=== PATIENT | male | born 1970 | race Caucasian/White ===

== ENCOUNTER 2020-02-05 08:50 | Day surgery (SDC) | payer BC, SELFPAY ==
[2020-01-30 09:45] VITALS: BMI 30.7
--- NOTE | 2020-02-03 13:36 | HO.ANESPROP2 ---
Documented by User: Blanca Gutierrez 02/03/20 13:38 HPI - Anesthesia Eval Consult details Narrative: 49yo M for Upper Endoscopy [facility] Past Medical History Medical History Anxiety Cervical radiculopathy Diabetes GERD (gastroesophageal reflux disease) History of rosacea History of tachycardia Hyperlipidemia LDL goal <100 Hypertension SOLEDAD (obstructive sleep apnea) Surgical History Surgical History History of appendectomy History of cervical discectomy Hx of cholecystectomy Hx of left knee surgery Social History Social History Smoking Status: Former smoker Smoking Quit Date: age 40 Advance Directives: No Advance Directives Information Provided: No Advance Directives on File: No Meds Allergies Allergy/AdvReac Type Severity Reaction Status Date / Time No Known Allergies Allergy Unverified 01/30/20 09:21 [No Known Allergies*] Home Medications Medication Instructions Recorded Confirmed Type dapagliflozin [Farxiga] 1 tab PO DAILY 01/30/20 01/30/20 History fluoxetine 1 cap PO DAILY 01/30/20 01/30/20 History furosemide 1 tab PO DAILY 01/30/20 01/30/20 History gabapentin 1 cap PO TID 01/30/20 01/30/20 History glipizide 1 tab PO BID 01/30/20 01/30/20 History ibuprofen 1 tab PO TID 01/30/20 01/30/20 History lisinopril 1 tab PO DAILY 01/30/20 01/30/20 History metformin 1 tab PO BID 01/30/20 01/30/20 History mirtazapine 1 tab PO BEDTIME 01/30/20 01/30/20 History sucralfate tab PO 01/30/20 01/30/20 History metoprolol succinate 1 tab PO DAILY 02/05/20 02/05/20 History Exam Exam Date and Time: February 03, 2020 1336 Height,Weight and Vital Signs: Height 6 ft 3 in Weight 111.584 kg Pertinent Lab Results Pertinent Lab Results: Laboratory Tests 12/24/19 10:25 Sodium 140 Potassium 5.1 D Chloride 96 BUN 18 H Creatinine 1.35 Assessment and Plan Assessment Anesthesia Assessment: Chart Reviewed Documented by User: Steve Jackson MD 02/05/20 09:38 PMFSH Past Medical History Medical History Anxiety Cervical radiculopathy Diabetes GERD (gastroesophageal reflux disease) History of rosacea History of tachycardia Hyperlipidemia LDL goal <100 Hypertension SOLEDAD (obstructive sleep apnea) Surgical History Surgical History History of appendectomy History of cervical discectomy Hx of cholecystectomy Hx of left knee surgery Social History Social History Smoking Status: Former smoker Smoking Quit Date: age 40 Advance Directives: No Advance Directives Information Provided: No Advance Directives on File: No Meds Allergies Allergy/AdvReac Type Severity Reaction Status Date / Time No Known Allergies Allergy Unverified 01/30/20 09:21 [No Known Allergies*] Home Medications Medication Instructions Recorded Confirmed Type dapagliflozin [Farxiga] 1 tab PO DAILY 01/30/20 01/30/20 History fluoxetine 1 cap PO DAILY 01/30/20 01/30/20 History furosemide 1 tab PO DAILY 01/30/20 01/30/20 History gabapentin 1 cap PO TID 01/30/20 01/30/20 History glipizide 1 tab PO BID 01/30/20 01/30/20 History ibuprofen 1 tab PO TID 01/30/20 01/30/20 History lisinopril 1 tab PO DAILY 01/30/20 01/30/20 History metformin 1 tab PO BID 01/30/20 01/30/20 History mirtazapine 1 tab PO BEDTIME 01/30/20 01/30/20 History sucralfate tab PO 01/30/20 01/30/20 History metoprolol succinate 1 tab PO DAILY 02/05/20 02/05/20 History Exam Airway Mallampati Class: II TM Dist: >3cm Neck ROM: Full Loose/Missing/Broken Teeth: No Heart: rrr Lungs: nl Other: ao Assessment and Plan Assessment Anesthesia Assessment: Anesthesia Plan Discussed and Chart Reviewed Final Anesthetic Review NPO: Yes ASA Class: II Final Preanesthetic Review: No Changes in Pt Med Stat, Meds/Allgs Chart Reviewed, Consent Obtained/Reviewed and Anes Risks/Benef Reviewed Patient Risk: Intermediate Procedure Risk: Low Anesthetic Plan Anesthetic Plan: MAC: Disposition: Standard PACU
[2020-02-05 09:17] VITALS: BP 129/77; PULSE 98; RESP 18; TEMP 36.1; O2SAT 96
[2020-02-05 09:18] LABS: Glucose, Whole Blood 186 mg/dL (60-115)
[2020-02-05] MEDS: Lactated Ringers 1,000 ML 100 ML IVCONT (09:23)
--- NOTE | 2020-02-05 09:37 | MHC.SHP ---
Pre-Procedural Eval Section B Chief Complaint: GERD Relevant Family History (Specify if Yes): No Relevant Social History: None Present Medications: see Short Stay Collaborative assessment Medical History: Significant History (radha, DM, HTn, HLP) History of Previous Operations: Relevant previous surgery/procedure and date(s) (cholecystectomy) Allergies: Allergies Allergy/AdvReac Type Severity Reaction Status Date / Time No Known Allergies Allergy Unverified 01/30/20 09:21 [No Known Allergies*] Review of Systems Sugical H&P ROS: Negative: Constitution, Cardiovascular, Respiratory, Neurological, Psychiatric, Hem-Onc, Allergic/Immunologic, Gastrointestinal, Genitourinary, Musculoskeletal, Integumentary, Endocrine and Eyes/Ears/Nose/Throat Exam Surgical H&P Exam: Normal: HEENT, Normal: Heart, Normal: Lungs, Normal: Extremities, Normal: Abdomen, Normal: Skin and Normal: Neurological Plan Diagnosis/Plan: Unchanged Patient has been examined and remains a candidate for the planned procedure
--- NOTE | 2020-02-05 09:58 | PM.OP ---
Brief Operative Note Date of Service: 02/05/20 Pre-op diagnosis: GERD Post-op diagnosis: same Procedure: see op note Surgeon: Yefri Avery MD Anesthesia: MAC Estimated blood loss (mL): 0 Condition: stable Disposition: PACU
--- NOTE | 2020-02-05 09:59 | W.PM.OPN ---
Operative Note Operative Note Date of Service: 02/05/20 Narrative: Procedure Description: EGD FLEXIBLE TRANSORAL UPPER GASTROINTESTINAL ENDOSCOPY UPPER ENDOSCOPY Consent: Indications for the procedure and potential complications of bleeding, perforation, reaction to medications and missed diagnosis were discussed with the patient and informed consent was obtained. Instrument: Olympus GIF H 190 J mid size upper endoscope Monitoring: Vital signs and clinical assessment, continuous EKG monitoring, Pulse oximetry, Carbon Dioxide monitoring and blood pressure monitoring were done throughout the procedure. Procedure: The patient was placed in the left lateral decubitis position and pre-procedure medications were administered and a bite block was placed. The endoscope was inserted into the mouth and advanced under direct vision to the third part of duodenum. A careful inspection was made as the upper endoscope was withdrawn including a retroflexed examination of the proximal stomach; Findings and interventions are described below. Findings: Larynx:normal Esophagus: GE junction at 38 cm, diaphragm hiatus at 40 cm, consistent with 2 cm sliding hiatal hernia, slightly irregular Z line, possible short segment barretts, bx taken, random esophagus bx also taken to r/o EoE Stomach: Patchy streaky gastric erythema frederick in antrum. Biopsies were obtained. Grade 2 flap valve on retroflexed examination of the cardia. Few fundic gland polyps noted Duodenum: bulbar epithelium looked slightly denuded possibly peptic injury bx taken Intervention: Biopsies as noted above Impression/Findings: gastritis small hiatal hernia PLAN: await bx results might consider changing PPI if sub optimal control if h pylori pos treat check NSAID hx lifestyle changes, e.g reduce alcohol etc, GERD precautions
[2020-02-05 10:11] VITALS: BP 109/59; PULSE 95; RESP 16; TEMP 37.1; O2SAT 95
[2020-02-05 10:26] VITALS: BP 115/72; PULSE 95; RESP 15; TEMP 37.1; O2SAT 96
--- NOTE | 2020-02-05 10:47 | HO.POSTANES ---
Post Anesthesia Evaluation Post Anesthesia Evaluation Vital Signs: Vital Signs Temp Pulse Resp BP Pulse Ox 02/05/20 10:26 98.8 F 95 15 115/72 96 02/05/20 10:11 98.8 F 95 16 109/59 L 95 02/05/20 09:17 97 F 98 18 129/77 96 Anesthesia: Monitored Mental Status: Awake Pain Control: Satisfactory Nausea/Vomiting: None Hydration: Adequate Anesthesia-Related Issues: No Anes. Related Issues
== END 2020-02-05 11:15 | disposition home or self-care (01) ==
PROVIDERS: PCP Family Medicine; Visit Provider Internal Medicine Gastroenterology
PROC: 0DJ08ZZ Inspection of Upper Intestinal Tract, Via Natural or Artificial Opening Endoscopic (ICD-10-PCS; CPT 43235; principal; 2020-02-05 09:30)
DX: K21.00 Gastro-esophageal reflux disease with esophagitis, without bleeding (principal); K29.50 Unspecified chronic gastritis without bleeding; K31.7 Polyp of stomach and duodenum; K44.9 Diaphragmatic hernia without obstruction or gangrene; I10 Essential (primary) hypertension; E78.5 Hyperlipidemia, unspecified; E11.8 Type 2 diabetes mellitus with unspecified complications; Z79.84 Long term (current) use of oral hypoglycemic drugs; Z79.899 Other long term (current) drug therapy; Z87.19 Personal history of other diseases of the digestive system; Z90.49 Acquired absence of other specified parts of digestive tract
CPT/HCPCS: 43239; 82947; 88305; 88342

== ENCOUNTER → 2020-02-26 14:11 | Outpatient (BNVA) | payer BC, SELFPAY | PROVIDERS: PCP Family Medicine; Referring Provider Family Medicine; Visit Provider Nurse Practitioner | DX: Z76.89 Persons encountering health services in other specified circumstances (principal) ==

== ENCOUNTER 2020-03-17 10:50 | Outpatient (REF) | payer BC, SELFPAY ==
[2020-03-17 11:38] LABS: Creatinine Urine 41.72 mg/dL; Microalbumin Urine < 5.0 mg/L
== END 2020-03-17 10:51 | disposition home or self-care (01) ==
LOC: HO.LNP 10:50
PROVIDERS: Visit Provider Family Medicine
DX: E11.9 Type 2 diabetes mellitus without complications (principal); K21.9 Gastro-esophageal reflux disease without esophagitis
CPT/HCPCS: 82043

== ENCOUNTER → 2020-03-25 15:00 | Outpatient (BNVA) | payer BC, SELFPAY | PROVIDERS: PCP Family Medicine; Visit Provider Nurse Practitioner | DX: Z76.89 Persons encountering health services in other specified circumstances (principal) ==

== ENCOUNTER 2020-06-15 13:42 | Outpatient (REF) | payer BC, SELFPAY ==
[2020-06-15 14:36] LABS: Creatinine Urine 53.01 mg/dL; Microalbumin Urine < 5.0 mg/L
== END 2020-06-15 13:43 | disposition home or self-care (01) ==
LOC: HO.LNP 13:42
PROVIDERS: Visit Provider Family Medicine
DX: E11.9 Type 2 diabetes mellitus without complications (principal)
CPT/HCPCS: 82043

== ENCOUNTER 2020-06-21 07:33 | Outpatient (REF) | payer BC, SELFPAY ==
[2020-06-21 11:34] LABS: Alanine Aminotransferase 35 U/L (0-40); Albumin Level 4.3 g/dL (3.5-5.0); Alkaline Phosphatase 114 U/L (39-117); Anion Gap 16 (12-20); Aspartate Amino Transferase 22 U/L (5-37); Bilirubin Total 0.5 mg/dL (0.0-1.0); Blood Urea Nitrogen 21 mg/dL (9-16); Calcium 8.6 mg/dL (8.4-10.2); Carbon Dioxide 27 mmol/L (22-29); Chloride 104 mmol/L (96-108); Cholesterol 142 mg/dL; Estimated Glomerular Filt Rate > 60; Glucose Random 189 mg/dL (60-115); HDL Cholesterol 38 mg/dL; LDL Cholesterol Calculated 69 mg/dl; Potassium 5.4 mmol/L (3.3-5.1); Sodium 142 mmol/L (135-145); Total Protein 7.1 g/dL (6.5-8.0); Triglycerides 179 mg/dL
[2020-06-25 08:37] LABS: Testosterone, Total 416 ng/dL (250-1100)
== END 2020-06-21 07:34 | disposition home or self-care (01) ==
LOC: HO.WFDLDS 07:33
PROVIDERS: Visit Provider Family Medicine
DX: Z00.00 Encounter for general adult medical examination without abnormal findings (principal); I10 Essential (primary) hypertension; E11.9 Type 2 diabetes mellitus without complications; E78.5 Hyperlipidemia, unspecified; N52.9 Male erectile dysfunction, unspecified
CPT/HCPCS: 36415; 80053; 80061; 84403

== ENCOUNTER 2020-10-25 08:00 | Outpatient (RCR) | payer BC, SELFPAY ==
--- NOTE | 2020-10-13 13:47 | MHC.PT.EP ---
[facility] [place] [facility] [place] Office [place] Office [address] [place] [address] Dr Rob Bolivar [address] [phone] F: [phone] F: [phone] F: [phone] F: [phone] Physical Therapy Plan of Care Date of Evaluation: Date of Surgery: NA Diagnosis: STRAIN OF MUSCLE, FASCIA AND TENDON OF LOWER BACK Assessment: Pt IS 49 YO M REFERRED TO PT FROM DR BAPTISTE WITH LB STRAIN. Pt REPORTS SXS MORE UPPER BACK THAN LB AT THIS TIME. Pt REPORTS PT IN PAST WITH GOOD RESULTS. PRESENTS WITH POOR POSTURE, LIMITED CERV ROM (HX OF CERV DISCECTOMY) AND LUMBAR ROM. Pt WITH LIMITED END ROM L SHLDER FLEX AND ABD WITH PAIN REPORTED AND +MODIFIED IMPINGEMENT TEST ON L. Pt SHOULD BENEFIT FROM PT TO ADDRESS THESE ISSUES WITH STRETCHES AND STRENGTHENING EXS WITH ST WORK PRN. POSTURE WORK TO STRETCH PECS AND CERV MMS AND UPPER BODY/LOWER BODY AND CORE STRENGTHENING. OF NOTE, Pt HAS BEEN EDUCATED ON IMPORTANCE OF CONTNUING WITH HOME PROG EVEN WHEN FEELING BETTER. Frequency and Duration: The patient will be seen 2X/WK X 6 WKS Short Term Goals: 1. I HEP WITH DC EX PLAN 2. Pt TO PERF 2-3 TASKS WITH PROPER BODY MECH 3. IMPROVED POSTURE AWARENESS Residential Goals: 1. DECREASED BACK PAIN AT LEAST 50% WITH ADLS 2. IMPROVED CERV AND TRUNK ROM 25% WHERE LIMITED Treatment Plan: Modalities to reduce pain, spasms and effusion. Manual therapy to restore motion and function. Therapeutic exercise to improve strength and flexibility. Neuromuscular re-education for posture and balance. Therapeutic activities to return to functional activities of daily living. Electronically signed by: GILMA GILES PT Please sign and return to therapist. Thank you for your referral.
--- NOTE | 2020-12-01 08:01 | MHC.PT.DC ---
[facility] [place] Office [place] Office [place] Office [address] Rob Bolivar [address] [phone] F: [phone] F: [phone] F: [phone] F: [phone] Physical Therapy Discharge Report Diagnosis: STRAIN OF MUSCLE, FASCIA AND TENDON OF LOWER BACK Date of Surgery: NA Date of Evaluation: 10/13/20 Date of Discharge: Treatments to Date: 3 Cancellations to Date: No Shows to Date: Discharge Status: Patient Elected to Stop Discharge Summary: Pt SEEN FOR INIT EVAL AND 2 FU VISITS. HE THEN CANCELLED HIS LAST SCHEDULED APPOINTMENT BECAUSE HE COULDNT GET OUT OF WORK. NO FURTHER APPTS SCHEDULED. PER LAST NOTE ASSESSMENT (BY ARIC MOLINA DPT), '10/25/20: Denies radiation of R periscap sx in past few days; has been using lumbar support roll when sitting. He reports greater challenge with L UE during strengthening tasks. Point specific trigger points noted L scalene/suboccpitals/cervical paraspinals. Pt shown theracane; we discussed benefit in obtaining foam roller for home use as (+) response is verbalized.' WILL DC AT THIS TIME SINCE IT HAS BEEN OVER 1 MONTH SINCE HIS LAST APPT Electronically signed by: GILMA GILES PT Please sign and return to therapist. Thank you for your referral.
--- NOTE | 2021-01-26 08:20 | MHC.PT.DC ---
[facility] [place] [facility] [place] Office [place] Office [address] Rob Bolivar [address] [phone] F: [phone] F: [phone] F: [phone] F: [phone] Physical Therapy Discharge Report Diagnosis: STRAIN OF MUSCLE, FASCIA AND TENDON OF LOWER BACK Date of Surgery: NA Date of Evaluation: 10/13/20 Date of Discharge: Treatments to Date: 3 Cancellations to Date: No Shows to Date: Discharge Status: Patient Elected to Stop Discharge Summary: Pt SEEN FOR INIT EVAL AND 2 FU VISITS. HE THEN CANCELLED HIS LAST SCHEDULED APPOINTMENT BECAUSE HE COULDNT GET OUT OF WORK. NO FURTHER APPTS SCHEDULED. PER LAST NOTE ASSESSMENT (BY ARIC MOLINA DPT), '10/25/20: Denies radiation of R periscap sx in past few days; has been using lumbar support roll when sitting. He reports greater challenge with L UE during strengthening tasks. Point specific trigger points noted L scalene/suboccpitals/cervical paraspinals. Pt shown theracane; we discussed benefit in obtaining foam roller for home use as (+) response is verbalized.' WILL DC AT THIS TIME SINCE IT HAS BEEN OVER 1 MONTH SINCE HIS LAST APPT Electronically signed by: Please sign and return to therapist. Thank you for your referral.
== END 2021-01-26 08:23 | disposition home or self-care (01) ==
LOC: HO.PTWFD 08:00
PROVIDERS: PCP Family Medicine; Visit Provider Family Medicine
DX: S39.012D Strain of muscle, fascia and tendon of lower back, subsequent encounter (principal)
CPT/HCPCS: 97014; 97110; 97140; 97162; 97535

== ENCOUNTER 2020-12-08 08:05 | Outpatient (REF) | payer BC, SELFPAY ==
[2020-12-08 10:46] LABS: Estimated Average Glucose 203 mg/dL; Hemoglobin A1c % 8.7 %
[2020-12-08 11:18] LABS: Alanine Aminotransferase 28 U/L (0-40); Albumin Level 4.3 g/dL (3.5-5.0); Alkaline Phosphatase 114 U/L (39-117); Aspartate Amino Transferase 20 U/L (5-37); Bilirubin Total 0.4 mg/dL (0.0-1.0); Blood Urea Nitrogen 11 mg/dL (9-16); Estimated Glomerular Filt Rate > 60; Glucose Fasting 190 mg/dL (60-99); Total Protein 7.2 g/dL (6.5-8.0)
[2020-12-08 11:33] LABS: Anion Gap 16 (12-20); Calcium 11.1 mg/dL (8.4-10.2); Carbon Dioxide 28 mmol/L (22-29); Chloride 105 mmol/L (96-108); Potassium 6.2 mmol/L (3.3-5.1); Sodium 143 mmol/L (135-145)
[2020-12-08 15:07] LABS: Potassium 5.6 mmol/L (3.3-5.1)
== END 2020-12-08 08:06 | disposition home or self-care (01) ==
LOC: HO.WFDLDS 08:05
PROVIDERS: PCP Family Medicine; Visit Provider Family Medicine
DX: Z00.00 Encounter for general adult medical examination without abnormal findings (principal); E11.9 Type 2 diabetes mellitus without complications; E87.5 Hyperkalemia
CPT/HCPCS: 36415; 80053; 83036; 84132

== ENCOUNTER 2020-12-24 08:48 | Outpatient (REF) | payer BC, SELFPAY ==
[2020-12-24 10:50] LABS: Potassium 4.5 mmol/L (3.3-5.1)
== END 2020-12-24 08:49 | disposition home or self-care (01) ==
LOC: HO.WFDLDS 08:48
PROVIDERS: PCP Family Medicine; Visit Provider Family Medicine
DX: E87.5 Hyperkalemia (principal)
CPT/HCPCS: 36415; 84132

== ENCOUNTER 2021-03-23 08:17 | Outpatient (REF) | payer BC, SELFPAY ==
[2021-03-23 11:43] LABS: Alanine Aminotransferase 32 U/L (0-40); Albumin Level 4.2 g/dL (3.5-5.0); Alkaline Phosphatase 141 U/L (39-117); Anion Gap 16 (12-20); Aspartate Amino Transferase 24 U/L (5-37); Bilirubin Total 0.3 mg/dL (0.0-1.0); Blood Urea Nitrogen 12 mg/dL (9-16); Calcium 9.4 mg/dL (8.4-10.2); Carbon Dioxide 26 mmol/L (22-29); Chloride 105 mmol/L (96-108); Estimated Glomerular Filt Rate > 60; Glucose Fasting 196 mg/dL (60-99); Sodium 142 mmol/L (135-145); Total Protein 7.1 g/dL (6.5-8.0)
== END 2021-03-23 08:18 | disposition home or self-care (01) ==
LOC: HO.WFDLDS 08:17
PROVIDERS: Visit Provider Family Medicine
DX: Z00.00 Encounter for general adult medical examination without abnormal findings (principal); E78.5 Hyperlipidemia, unspecified; E11.9 Type 2 diabetes mellitus without complications
CPT/HCPCS: 36415; 80053

== ENCOUNTER 2021-04-22 07:31 | Outpatient (REF) | payer BC, SELFPAY ==
[2021-04-22 11:05] LABS: Anion Gap 15 (12-20); Blood Urea Nitrogen 10 mg/dL (9-16); Calcium 9.6 mg/dL (8.4-10.2); Carbon Dioxide 29 mmol/L (22-29); Chloride 105 mmol/L (96-108); Estimated Glomerular Filt Rate > 60; Glucose Fasting 245 mg/dL (60-99); Potassium 4.9 mmol/L (3.3-5.1); Sodium 144 mmol/L (135-145)
[2021-04-22 11:20] LABS: Estimated Average Glucose 189 mg/dL; Hemoglobin A1c % 8.2 %
== END 2021-04-22 07:32 | disposition home or self-care (01) ==
LOC: HO.WFDLDS 07:31
PROVIDERS: Visit Provider Family Medicine
DX: E11.9 Type 2 diabetes mellitus without complications (principal); E87.5 Hyperkalemia
CPT/HCPCS: 36415; 80048; 83036

== ENCOUNTER 2021-10-07 08:16 | Outpatient (REF) | payer BC, SELFPAY ==
[2021-10-07 11:52] LABS: Alanine Aminotransferase 26 U/L (0-40); Alkaline Phosphatase 156 U/L (39-117); Anion Gap 14 (12-20); Aspartate Amino Transferase 19 U/L (5-37); Bilirubin Total 0.3 mg/dL (0.0-1.0); Blood Urea Nitrogen 10 mg/dL (9-16); Calcium 9.2 mg/dL (8.4-10.2); Carbon Dioxide 28 mmol/L (22-29); Chloride 105 mmol/L (96-108); Cholesterol 149 mg/dL; Estimated Glomerular Filt Rate > 60; Glucose Fasting 225 mg/dL (60-99); HDL Cholesterol 40 mg/dL; LDL Cholesterol Calculated 60 mg/dl; Potassium 5.4 mmol/L (3.3-5.1); Sodium 142 mmol/L (135-145); Total Protein 6.9 g/dL (6.5-8.0); Triglycerides 247 mg/dL
[2021-10-07 11:54] LABS: Appearance Urine CLEAR; Color Urine DK YELLOW; Glucose Urine UA >=1000 MG/DL (NEG); Leukocyte Esterase Urine NEG (NEG); Nitrite Urine NEG (NEG); Urine Blood NEG (NEG); Urine Ketones NEG (NEG); Urine Protein NEG (NEG-TRACE)
[2021-10-07 12:16] LABS: TSH reflex Free T4 2.18 uIU/mL (0.32-4.0)
[2021-10-07 12:18] LABS: Bacteria Urine TRACE /LPF; RBC Urine 0 /HPF (0); WBC Urine 0 /HPF (0-4)
[2021-10-07 12:48] LABS: Creatinine Urine 59.72 mg/dL; Microalbumin Urine < 5.0 mg/L
== END 2021-10-07 08:17 | disposition home or self-care (01) ==
LOC: HO.WFDLDS 08:16
PROVIDERS: Visit Provider Family Medicine
DX: Z00.00 Encounter for general adult medical examination without abnormal findings (principal); I10 Essential (primary) hypertension
CPT/HCPCS: 36415; 80053; 80061; 81001; 82043; 84443

== ENCOUNTER 2021-10-13 10:41 | Outpatient (REF) | payer BC, SELFPAY ==
[2021-10-13 14:22] LABS: MANUAL DIFF FLAG NO
[2021-10-13 14:27] LABS: Basophils Absolute Auto 0.1 X10*3/uL (0.0-0.2); Basophils Percent Auto 0.6 % (0-2); Eosinophils Absolute Auto 0.3 X10*3/uL (0.0-0.4); Eosinophils Percent Auto 2.6 % (0-4); Hemoglobin 11.7 g/dl (14.0-18.0); Imm Gran Abs Auto 0.04 X10*3/uL (0.00-0.03); Imm Gran Pct Auto 0.3 % (0.0-0.4); Lymphocytes Absolute Auto 2.6 X10*3/uL (1.2-4.9); Lymphocytes Percent Auto 20.7 % (20-40); Mean Corpuscular HGB Conc 27.2 g/dl (31.0-36.0); Mean Corpuscular Hemoglobin 20.1 pg (27.0-33.0); Mean Corpuscular Volume 73.9 fL (80.0-98.0); Mean Platelet Volume 8.8 fL (9.4-12.4); Monocytes Percent Auto 7.9 % (2-11); Neutrophils Absolute Auto 8.4 x10*3/uL (2.0-8.3); Neutrophils Percent Auto 67.9 % (45-73); Platelet Count 537 X10*3/uL (160-400); Red Blood Count 5.82 X10*6/uL (4.60-5.80); Red Cell Distribution Width 17.8 % (11.0-16.0); White Blood Count 12.4 X10*3/uL (4.8-10.8)
[2021-10-13 14:31] LABS: Appearance Urine CLEAR; Color Urine YELLOW; Glucose Urine UA >=1000 MG/DL (NEG); Leukocyte Esterase Urine NEG (NEG); Nitrite Urine NEG (NEG); PH 5.5 (5.0-8.0); Urine Blood NEG (NEG); Urine Ketones 5 MG/DL (NEG); Urine Protein NEG (NEG-TRACE)
[2021-10-13 14:40] LABS: RBC Urine 0 /HPF (0); WBC Urine 0 /HPF (0-4)
[2021-10-13 15:24] LABS: Anion Gap 19 (12-20); Blood Urea Nitrogen 12 mg/dL (9-16); Calcium 10.2 mg/dL (8.4-10.2); Carbon Dioxide 26 mmol/L (22-29); Chloride 103 mmol/L (96-108); Estimated Glomerular Filt Rate > 60; Glucose Random 86 mg/dL (60-115); Potassium 5.9 mmol/L (3.3-5.1); Sodium 142 mmol/L (135-145)
== END 2021-10-13 10:42 | disposition home or self-care (01) ==
LOC: HO.WFDLDS 10:41
PROVIDERS: Visit Provider Family Medicine
DX: Z00.00 Encounter for general adult medical examination without abnormal findings (principal); Z12.5 Encounter for screening for malignant neoplasm of prostate; E87.5 Hyperkalemia
CPT/HCPCS: 36415; 80048; 81001; 84153; 85025

== ENCOUNTER 2021-12-30 12:49 | Outpatient (REF) | payer BC, SELFPAY | END 2021-12-30 12:50 | disposition home or self-care (01) | LOC: HO.LNP 12:49 | PROVIDERS: Visit Provider Nurse Practitioner | DX: K21.9 Gastro-esophageal reflux disease without esophagitis (principal) | CPT/HCPCS: 87338 ==

== ENCOUNTER 2022-01-10 08:34 | Outpatient (REF) | payer BC, SELFPAY ==
--- NOTE | ~2022-01-10 | FL_ITS ---
EXAMINATION: FL BARIUM SWALLOW CLINICAL INFORMATION: Dysphagia. Postcholecystectomy syndrome. COMPARISON: None. TECHNIQUE: Barium swallow examination is performed using fluoroscopic evaluation in addition to multiple fluoroscopic spot views. The patient is imaged both upright and prone and using both thick and thin sulfate along with effervescent granules. Fluoroscopy time: 1.7 minutes DAP: 13.478 Gycm2 Images: 45 FINDINGS: Following oral administration of thick barium and barium-coated turkey in upright view, there is normal propagation of bolus from the oral cavity through the pharynx and esophagus and into the stomach without any evidence of obstruction, narrowing or stricture. On placing patient prone lying and oral administration of thin barium, there is good distention of the entire esophagus without intrinsic or extrinsic impression. No gastroesophageal reflux or hiatal hernia seen. There is a ventral plate and screws at C5, C6 and C7 vertebrae for ventral fusion. No lytic or sclerotic process seen. The prevertebral soft tissues are normal. FL/FL barium swallow IMPRESSION: Unremarkable barium swallow exam.
== END 2022-01-10 08:35 | disposition home or self-care (01) ==
LOC: HO.XRAY 08:34
PROVIDERS: PCP Family Medicine; Visit Provider Nurse Practitioner
DX: K21.9 Gastro-esophageal reflux disease without esophagitis (principal); K91.5 Postcholecystectomy syndrome
CPT/HCPCS: 74220

== ENCOUNTER 2022-01-18 08:05 | Outpatient (REF) | payer BC, SELFPAY ==
[2022-01-18 11:17] LABS: MANUAL DIFF FLAG NO
[2022-01-18 11:32] LABS: Basophils Absolute Auto 0.1 X10*3/uL (0.0-0.2); Basophils Percent Auto 1.2 % (0-2); Eosinophils Absolute Auto 0.2 X10*3/uL (0.0-0.4); Eosinophils Percent Auto 4.1 % (0-4); Hematocrit 39.3 % (42.0-52.0); Hemoglobin 11.1 g/dl (14.0-18.0); Imm Gran Abs Auto 0.02 X10*3/uL (0.00-0.03); Imm Gran Pct Auto 0.3 % (0.0-0.4); Lymphocytes Absolute Auto 1.7 X10*3/uL (1.2-4.9); Lymphocytes Percent Auto 29.3 % (20-40); Mean Corpuscular HGB Conc 28.2 g/dl (31.0-36.0); Mean Corpuscular Volume 74.3 fL (80.0-98.0); Monocytes Absolute Auto 0.5 X10*3/uL (0.1-1.2); Monocytes Percent Auto 9.3 % (2-11); Neutrophils Absolute Auto 3.2 x10*3/uL (2.0-8.3); Neutrophils Percent Auto 55.8 % (45-73); Platelet Count 393 X10*3/uL (160-400); Red Blood Count 5.29 X10*6/uL (4.60-5.80); Red Cell Distribution Width 17.7 % (11.0-16.0); White Blood Count 5.8 X10*3/uL (4.8-10.8)
[2022-01-18 11:51] LABS: Alanine Aminotransferase 28 U/L (0-40); Albumin Level 4.2 g/dL (3.5-5.0); Alkaline Phosphatase 103 U/L (39-117); Anion Gap 15 (12-20); Aspartate Amino Transferase 24 U/L (5-37); Bilirubin Total < 0.2 mg/dL (0.0-1.0); Blood Urea Nitrogen 12 mg/dL (9-16); Calcium 9.4 mg/dL (8.4-10.2); Carbon Dioxide 27 mmol/L (22-29); Chloride 104 mmol/L (96-108); Estimated Glomerular Filt Rate > 60; Glucose Fasting 159 mg/dL (60-99); Potassium 5.1 mmol/L (3.3-5.1); Sodium 141 mmol/L (135-145); Total Protein 6.9 g/dL (6.5-8.0)
== END 2022-01-18 08:06 | disposition home or self-care (01) ==
LOC: HO.WFDLDS 08:05
PROVIDERS: Visit Provider Family Medicine
DX: Z00.00 Encounter for general adult medical examination without abnormal findings (principal); E87.5 Hyperkalemia; R53.83 Other fatigue; D64.9 Anemia, unspecified
CPT/HCPCS: 36415; 80053; 85025

== ENCOUNTER 2022-05-18 07:51 | Day surgery (SDC) | payer BC, SELFPAY ==
[2022-05-16 12:27] VITALS: BMI 27.6
[2022-05-18 08:26] VITALS: BP 126/86; PULSE 98; RESP 16; TEMP 36.9; O2SAT 96; BMI 28.8
--- NOTE | 2022-05-18 08:37 | HO.ANESPROP2 ---
[facility], [facility] Active Problems Active Problems: All Active Problems (Updated 01/12/22 @ 09:15 by Tony Lewis) Fatigue (Acute) Borderline anemia (Acute) Pre-op examination (Acute) Post-cholecystectomy syndrome (Acute) Screening for colon cancer (Acute) Screening for prostate cancer (Acute) Adult general medical exam (Acute) Anxiety (Acute) Muscle strain (Acute) Hyperkalemia (Acute) Back strain (Acute) Low HDL (under 40) (Acute) Hyperkalemia (Acute) Erectile dysfunction (Acute) Essential hypertension (Acute) Diabetes type 2, controlled (Acute) GERD (gastroesophageal reflux disease) (Acute) Hyperlipidemia LDL goal <100 (Acute) Past Medical History Medical History Anxiety Cervical radiculopathy Diabetes GERD (gastroesophageal reflux disease) History of rosacea History of tachycardia Hyperlipidemia LDL goal <100 Hypertension SOLEDAD (obstructive sleep apnea) Family History Family History Father Diabetes Bladder cancer Family history of cancer Mother Heart problem Chronic GERD Paternal Aunt Cancer Surgical History Surgical History History of appendectomy History of cervical discectomy History of esophagogastroduodenoscopy (EGD) Hx of cholecystectomy Hx of left knee surgery History of Problems with Anesthesia: No Social History Social History Housing: House Alcohol intake: current Alcohol intake frequency: a few times a week Patient Tobacco Use Status: Never used Tobacco e-Cigarette/Vaping Use: Never Used Second Hand Smoke Exposure: No Use of substances other than those prescribed or required for medical reasons: No Advance Directives: No Advance Directives Information Provided: Yes service: No Current occupational status: employed Current occupational exposures/hazards: No Cognitive needs: No Hearing needs: No Vision needs: No Meds Allergies Allergy/AdvReac Type Severity Reaction Status Date / Time No Known Allergies Allergy Verified 01/19/22 08:03 [No Known Allergies*] Home Medications Medication Instructions Recorded Confirmed Last Taken Type ibuprofen 800 mg tablet 1 tab PO TID 01/30/20 12/08/21 01/29/20 History omeprazole 20 mg capsule,delayed 20 mg PO BID 12/08/21 12/08/21 Unknown History release Exam Exam Date and Time: May 18, 2022 0837 Height,Weight and Vital Signs: Height 6 ft 2 in Weight 102.058 kg Last Vital Signs Temp 98.4 F 05/18/22 08:26 Pulse 98 05/18/22 08:26 Resp 16 05/18/22 08:26 BP 126/86 05/18/22 08:26 Pulse Ox 96 05/18/22 08:26 O2 Del Method 05/18/22 08:26 Airway Mallampati Class: III TM Dist: >3cm Neck ROM: Full Loose/Missing/Broken Teeth: No Heart: RRR Lungs: CTA Assessment and Plan Assessment Anesthesia Assessment: Anesthesia Plan Discussed and Chart Reviewed Final Anesthetic Review History of Problems with Anesthesia: No NPO: Yes ASA Class: III Final Preanesthetic Review: Meds/Allgs Chart Reviewed, Consent Obtained/Reviewed and Anes Risks/Benef Reviewed Patient Risk: Intermediate Procedure Risk: Low Anesthetic Plan Anesthetic Plan: MAC: Disposition: Standard PACU
[2022-05-18 08:39] LABS: Glucose, Whole Blood 151 mg/dL (60-115)
--- NOTE | 2022-05-18 08:45 | MHC.SHP ---
Pre-Procedural Eval Section A Date of Service: 05/18/22 Section B Chief Complaint: Encounter for screening for malignant neoplasm of Relevant Family History (Specify if Yes): No Relevant Social History: None Present Medications: see Short Stay Collaborative assessment Medical History: Significant History (Anxiety Cervical radiculopathy Diabetes GERD (gastroesophageal reflux disease) History of rosacea History of tachycardia Hyperlipidemia LDL goal <100 Hypertension SOLEDAD (obstructive sleep apnea)) History of Previous Operations: Relevant previous surgery/procedure and date(s) (History of appendectomy History of cervical discectomy History of esophagogastroduodenoscopy (EGD) Hx of cholecystectomy Hx of left knee surgery) Allergies: Allergies Allergy/AdvReac Type Severity Reaction Status Date / Time No Known Allergies Allergy Verified 01/19/22 08:03 [No Known Allergies*] Review of Systems Sugical H&P ROS: Negative: Constitution, Cardiovascular, Respiratory, Neurological, Psychiatric, Hem-Onc, Allergic/Immunologic, Gastrointestinal, Genitourinary, Musculoskeletal, Integumentary, Endocrine and Eyes/Ears/Nose/Throat Exam Surgical H&P Exam: Normal: HEENT, Normal: Heart, Normal: Lungs, Normal: Extremities, Normal: Abdomen, Normal: Skin and Normal: Neurological Plan Diagnosis/Plan: Unchanged I have reviewed the history and physical and performed a pertinent physical examination on my patient. No changes have occurred unless specified. Time Spent With Patient Time: Total time managing care of this patient today ____ minutes.
--- NOTE | 2022-05-18 08:53 | P.OP_ITS ---
Operative Note Operative Note Date of Service: 05/18/22 Narrative: Operative Information Procedure Description: Colonoscopy Indication: screening Anesthesia: MAC COLONOSCOPY Instrument: Olympus variable stiffness pediatric scope 190L Colonoscopy Monitoring: Vital signs and clinical assessment, continuous EKG monitoring, Pulse oximetry, Carbon Dioxide monitoring and blood pressure monitoring were done throughout the procedure. Colon withdrawal time was 9 minutes. Procedure: The patient was placed in the left lateral decubitis position and pre-procedure medications were administered. After a digital rectal examination of the ano-rectum, the video colonoscope was inserted into the rectum and advanced through the colon to the cecum/TI. The colonoscope was slowly withdrawn in a retrograde panoramic fashion and the colon mucosa was carefully examined including a retroflexed view of the rectum. Findings and interventions are described below. Procedure Difficulty: moderate, pressure mid abdomen applied to reach cecum Findings: Terminal Ileum-normal Cecum:normal Ascending Colon: normal Transverse Colon -normal Descending Colon:normal Sigmoid Colon: normal Rectum: Retroflexion with small internal hemorrhoids, grade I Anorectum - normal Colon preparation: [place] Bowel Preparation Scale Right colon; 2 Transverse colon: 2 Left colon; 2 (0 = Unprepared colon segment with mucosa not seen due to solid stool that cannot be cleared. 1 = Portion of mucosa of the colon segment seen, but other areas of the colon segment not well seen due to staining, residual stool and/or opaque liquid. 2 = Minor amount of residual staining, small fragments of stool and/or opaque liquid, but mucosa of colon segment seen well. 3 = Entire mucosa of colon segment seen well with no residual staining, small fragments of stool or opaque liquid) Impression and Post Procedure Diagnosis: internal hemorrhoids Plan: High fiber diet leaflet Avoid straining at stool, epsom salts and sitz bath, anusol supps or cream Repeat Colonoscopy in 10 years or earlier if clinically indicated Above findings were reviewed with the patient and relevant handouts were provided if indicated.
[2022-05-18 09:25] VITALS: BP 104/68; PULSE 99; RESP 20; TEMP 37.1; O2SAT 100
[2022-05-18 09:40] VITALS: BP 112/82; PULSE 97; RESP 18; TEMP 36.6; O2SAT 97
== END 2022-05-18 10:11 | disposition home or self-care (01) ==
PROVIDERS: PCP Family Medicine; Visit Provider Internal Medicine Gastroenterology
PROC: 0DJD8ZZ Inspection of Lower Intestinal Tract, Via Natural or Artificial Opening Endoscopic (ICD-10-PCS; CPT 45378; principal; 2022-05-18 09:00)
DX: Z12.11 Encounter for screening for malignant neoplasm of colon (principal); K57.30 Diverticulosis of large intestine without perforation or abscess without bleeding; K64.0 First degree hemorrhoids; K91.5 Postcholecystectomy syndrome; K21.9 Gastro-esophageal reflux disease without esophagitis; G47.33 Obstructive sleep apnea (adult) (pediatric); I10 Essential (primary) hypertension; E78.5 Hyperlipidemia, unspecified; E11.9 Type 2 diabetes mellitus without complications; Z79.899 Other long term (current) drug therapy; Z90.49 Acquired absence of other specified parts of digestive tract
CPT/HCPCS: 45378; 82947; J2250

== ENCOUNTER → 2022-06-20 08:04 | Outpatient (BNVA) | payer BC, SELFPAY | PROVIDERS: PCP Family Medicine; Visit Provider Nurse Practitioner | DX: Z13.89 Encounter for screening for other disorder (principal) ==

== ENCOUNTER 2023-02-23 08:11 | Outpatient (REF) | payer BC, SELFPAY ==
[2023-02-23 11:10] LABS: MANUAL DIFF FLAG NO
[2023-02-23 11:40] LABS: Basophils Absolute Auto 0.1 X10*3/uL (0.0-0.2); Eosinophils Absolute Auto 0.3 X10*3/uL (0.0-0.4); Eosinophils Percent Auto 4.4 % (0-4); Hematocrit 40.8 % (42.0-52.0); Hemoglobin 10.8 g/dl (14.0-18.0); Imm Gran Abs Auto 0.01 X10*3/uL (0.00-0.03); Imm Gran Pct Auto 0.2 % (0.0-0.4); Lymphocytes Absolute Auto 1.5 X10*3/uL (1.2-4.9); Lymphocytes Percent Auto 24.1 % (20-40); Mean Corpuscular HGB Conc 26.5 g/dl (31.0-36.0); Mean Corpuscular Hemoglobin 19.1 pg (27.0-33.0); Mean Corpuscular Volume 72.3 fL (80.0-98.0); Mean Platelet Volume 8.8 fL (9.4-12.4); Monocytes Absolute Auto 0.7 X10*3/uL (0.1-1.2); Monocytes Percent Auto 11.7 % (2-11); Neutrophils Absolute Auto 3.6 x10*3/uL (2.0-8.3); Neutrophils Percent Auto 58.6 % (45-73); Platelet Count 483 X10*3/uL (160-400); Red Blood Count 5.64 X10*6/uL (4.60-5.80); Red Cell Distribution Width 17.7 % (11.0-16.0); White Blood Count 6.1 X10*3/uL (4.8-10.8)
[2023-02-23 12:12] LABS: Alanine Aminotransferase 21 U/L (0-40); Albumin Level 4.2 g/dL (3.5-5.0); Alkaline Phosphatase 98 U/L (39-117); Anion Gap 16 (12-20); Aspartate Amino Transferase 19 U/L (5-37); Bilirubin Total 0.3 mg/dL (0.0-1.0); Blood Urea Nitrogen 10 mg/dL (9-16); Calcium 9.5 mg/dL (8.4-10.2); Carbon Dioxide 28 mmol/L (22-29); Chloride 110 mmol/L (96-108); Estimated Glomerular Filt Rate > 60; Glucose Fasting 172 mg/dL (60-99); Potassium 6.1 mmol/L (3.3-5.1); Sodium 148 mmol/L (135-145); Total Protein 7.5 g/dL (6.5-8.0)
== END 2023-02-23 08:12 | disposition home or self-care (01) ==
LOC: HO.WFDLDS 08:11
PROVIDERS: Visit Provider Family Medicine
DX: Z00.00 Encounter for general adult medical examination without abnormal findings (principal); E11.9 Type 2 diabetes mellitus without complications; D64.9 Anemia, unspecified
CPT/HCPCS: 36415; 80053; 85025

== ENCOUNTER 2023-02-26 11:36 | Outpatient (AMB) | payer BC, SELFPAY ==
--- NOTE | 2023-02-26 11:38 | A.OFFPC_ITS ---
Vital Signs 02/26/23 11:41 Height 6 ft 2 in Weight 220 lb BMI 28.2 BP 110/60 Blood Pressure Location Lt brachial Position Sitting Respiration 13 Pulse 99 Pulse Source Pulse Oximeter Pulse Oximetry (%) 98 Oxygen Delivery Method Room Air Intake Visit Reasons: f/u diabetes Intake Note: Patient is here to follow up with diabetes and to review labs drawn 02/23/23. Patient was seen by [facility] on 02/23/23 for right shoulder pain. Patient reports he was informed of calcium deposits in the right shoulder and is requesting a referral for PT. Patient reports he was prescribed potassium on 02/23/23. 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 Last A1c 09/22/22 7.0%. He is on Farxiga 10mg, dulaglutide 1.5mg, glipizide 10mg b.i.d. and metformin 850mg t.i.d. A1c today 02/26/23 is 7.2%. Pt states he is having difficulty with work/life schedule but is taking meds as prescribed. Labs were drawn 02/23/23. Reviewed labs with pt. Ongoing anemia. Potassium level elevated at 6.1 mmol/L. Sodium level also elevated at 148 mmol/L. REPLACED BY [facility] Medical History History of rosacea SOLEDAD (obstructive sleep apnea) Cervical radiculopathy History of tachycardia Diabetes GERD (gastroesophageal reflux disease) Anxiety Hypertension Hyperlipidemia LDL goal <100 Surgical History History of esophagogastroduodenoscopy (EGD) Hx of left knee surgery History of appendectomy History of cervical discectomy Hx of cholecystectomy Family History Father Diabetes Bladder cancer Family history of cancer Mother Heart problem Chronic GERD Paternal Aunt Cancer Social History (Updated 02/26/23 @ 11:54 by Carissa Novoa CMA) Household Members: Family Housing: House Alcohol intake: current Alcohol intake frequency: a few times a week Patient Tobacco Use Status: Never used Tobacco e-Cigarette/Vaping Use: Never Used Second Hand Smoke Exposure: No service: No Current occupational status: employed Current occupational exposures/hazards: No Sexual orientation: Unable to collect Gender identity: Unable to collect Cognitive needs: No Hearing needs: No Vision needs: No Questionnaire Thrive Questionnaire Date Thrive assessed: 04/28/21 ZAY-7 AMB Questionnaire ZAY-7 Date ZAY - 7 assessed: 10/13/21 Source: Developed by Drs. Juanito Snell, Danii Van, James Easley and colleagues, with an educational herminia from [employer]. Review of Systems Const Denies chills, Denies fatigue, Denies fever(s), Denies headache(s) and Denies weakness ENT Denies dizziness and Denies headache(s) Card Denies dyspnea Resp Denies cough, Denies dyspnea, Denies wheezing and Denies other (shortness of breath) Musc Denies numbness and Denies tingling Neuro Denies dizziness, Denies headache(s), Denies numbness, Denies tingling and Denies weakness Psych Denies anxiety and Denies depression Endo Denies fatigue Aller/Immun Denies wheezing Physical exam (Primary Care) Vital Signs: Last Vital Signs Pulse 99 02/26/23 11:41 Resp 13 02/26/23 11:41 BP 110/60 02/26/23 11:41 Pulse Ox 98 02/26/23 11:41 Oxygen Delivery Method Room Air 02/26/23 11:41 BMI result Body Mass Index 28.2 Tobacco/Smoking Status: Tobacco use Status Tobacco use date assessed 02/26/23 02/26/23 11:52 Patient Tobacco Use Status Never used Tobacco 02/26/23 11:54 e-Cigarette/Vaping Use Never Used 02/26/23 11:54 Thrive Assessment: Date of Thrive Assessment Date Thrive assessed 04/28/21 02/26/23 11:39 Const General: well developed; No acute distress Nutritional Appearance: well nourished Orientation/consciousness: patient oriented x3 HENNE Head: Yes normocephalic and Yes atraumatic Eyes General: appearance normal, both eyes and all related structures Pupils: Equal, round and reactive pupils present EOM: EOMs intact bilaterally Resp Effort & Inspection: normal respiratory effort Neuro General: patient oriented x3 and gait normal Cranial nerves: Yes Equal, round and reactive pupils present Psych Affect: normal affect Results AMB Hemoglobin A1c AMB Hemoglobin A1c 7.2 % Last Edit by Carissa Novoa CMA on 02/26/23 11:58 Results Reviewed Results Reviewed: Laboratory Last Values Hgb A1c (Clinic) 7.2 % (4.0-6.0) H 02/26/23 11:55 Assessment and Plan Assessment & Plan (1) Diabetes type 2, controlled: Code(s): E11.9 - Type 2 diabetes mellitus without complications Plan: A1c?7.2%.??Suboptimal?control.??Goal?is?less?than?7% Patient?is?having?difficulty?with?work/life?schedule?but?is?taking?medications?a s?prescribed Will?increase?Trulicity?and?continue?his?other?medications?as?prescribed (2) Hyperkalemia: Code(s): E87.5 - Hyperkalemia Plan: Started?Kayexalate?on?Sunday.??He?has?taken?this? medication?before.??He?is?tolerating?well Will?repeat?his?potassium?level?today (3) Mild anemia: Code(s): D64.9 - Anemia, unspecified Plan: Denies?bleeding Repeating?H&H?as?well?as?iron?studies?and?retic?count (4) Right shoulder pain: Code(s): M25.511 - Pain in right shoulder Plan: Right?shoulder?pain?which?is?mildly?improved?with?injection?therapy. Ortho?recommended?physical?therapy. Also?has?right?hand?numbness?which?is?ongoing?and?has?seen?neurosurgery?in?the?p ast - recommended?MRI?but?patient?can?not?afford?this.??Also?recommended?physical?ther apy Will?include?physical?therapy?of?cervical?spine?for?radiculopathy. Orders: Orders AMB Hemoglobin A1c Today Z13.9 - Encounter for screening, unspecified Reticulocyte Count Today D64.9 - Anemia, unspecified Ferritin Today D64.9 - Anemia, unspecified Complete Blood Count Auto Diff Today D64.9 - Anemia, unspecified, Z00.00 - Encounter for general adult medical examination without abnormal findings IRON PROFILE Today D64.9 - Anemia, unspecified Vitamin B12 and Folate Today D64.9 - Anemia, unspecified, E53.8 - Deficiency of other specified B group vitamins PT Evaluation and Treatment Today M25.511 - Pain in right shoulder, M54.12 - Radiculopathy, cervical region, M54.2 - Cervicalgia Medications: Changed From dulaglutide 1.5 mg (0.5 mL) subcut QWEEK 28 days 2 mL 2RF To dulaglutide 3 mg (0.5 mL) subcut QWEEK 2 mL 2RF 28 days Coding Level of Care Code Est Pt Level 4 (59993) Diagnoses Diabetes type 2, controlled E11.9 Hyperkalemia E87.5 Mild anemia D64.9 Right shoulder pain M25.511
[2023-02-26 11:41] VITALS: BP 110/60; PULSE 99; RESP 13; O2SAT 98; BMI 28.2
== END 2023-02-26 12:44 | disposition home or self-care (01) ==
PROVIDERS: PCP Family Medicine; Visit Provider Family Medicine
DX: E11.9 Type 2 diabetes mellitus without complications (principal); E87.5 Hyperkalemia; D64.9 Anemia, unspecified; M25.511 Pain in right shoulder
CPT/HCPCS: 83036; 99214

== ENCOUNTER 2023-02-26 12:45 | Outpatient (REF) | payer BC, SELFPAY ==
[2023-02-26 14:39] LABS: MANUAL DIFF FLAG NO
[2023-02-26 14:52] LABS: Basophils Percent Auto 0.7 % (0-2); Eosinophils Absolute Auto 0.2 X10*3/uL (0.0-0.4); Eosinophils Percent Auto 2.5 % (0-4); Hematocrit 37.3 % (42.0-52.0); Hemoglobin 10.1 g/dl (14.0-18.0); Imm Gran Abs Auto 0.02 X10*3/uL (0.00-0.03); Imm Gran Pct Auto 0.3 % (0.0-0.4); Immature Retic Fraction 21.2 % (2.3-13.4); Lymphocytes Absolute Auto 1.5 X10*3/uL (1.2-4.9); Lymphocytes Percent Auto 25.8 % (20-40); Mean Corpuscular HGB Conc 27.1 g/dl (31.0-36.0); Mean Corpuscular Hemoglobin 19.6 pg (27.0-33.0); Mean Corpuscular Volume 72.4 fL (80.0-98.0); Mean Platelet Volume 8.9 fL (9.4-12.4); Monocytes Absolute Auto 0.7 X10*3/uL (0.1-1.2); Monocytes Percent Auto 11.2 % (2-11); Neutrophils Absolute Auto 3.5 x10*3/uL (2.0-8.3); Neutrophils Percent Auto 59.5 % (45-73); Platelet Count 477 X10*3/uL (160-400); Red Blood Count 5.15 X10*6/uL (4.60-5.80); Red Cell Distribution Width 17.2 % (11.0-16.0); Retic HGB Equivalent 18.1 pg (30.0-35.0); Reticulocyte Percent 1.2 % (0.5-1.8); Reticulocytes Absolute 0.062 X10*6/uL (0.026-0.095); White Blood Count 5.9 X10*3/uL (4.8-10.8)
[2023-02-26 15:14] LABS: Anion Gap 12 (12-20); Blood Urea Nitrogen 12 mg/dL (9-16); Calcium 9.1 mg/dL (8.4-10.2); Carbon Dioxide 29 mmol/L (22-29); Chloride 108 mmol/L (96-108); Estimated Glomerular Filt Rate > 60; Glucose Random 198 mg/dL (60-115); Iron 15 mcg/dL (45-160); Percent Iron Saturation 4 % (15-50); Potassium 4.7 mmol/L (3.3-5.1); Sodium 144 mmol/L (135-145); Total Iron Binding Capacity 403 mcg/dL (228-428); Unsaturated Iron Binding 388 ug/dL
[2023-02-26 15:19] LABS: Ferritin 5 ng/mL (20-250)
[2023-02-26 15:30] LABS: Folate 11.4 ng/mL (> or = 4.0); Vitamin B12 534 pg/mL (200-900)
== END 2023-02-26 12:46 | disposition home or self-care (01) ==
LOC: HO.WFDLDS 12:45
PROVIDERS: Visit Provider Family Medicine
DX: Z00.00 Encounter for general adult medical examination without abnormal findings (principal); E87.5 Hyperkalemia; E53.8 Deficiency of other specified B group vitamins; D64.9 Anemia, unspecified
CPT/HCPCS: 36415; 80048; 82607; 82728; 82746; 83540; 85025; 85045

== ENCOUNTER 2023-05-31 08:59 | Outpatient (REF) | payer BC, SELFPAY ==
[2023-05-31 11:16] LABS: MANUAL DIFF FLAG NO
[2023-05-31 11:45] LABS: Basophils Percent Auto 0.8 % (0-2); Eosinophils Absolute Auto 0.3 X10*3/uL (0.0-0.4); Hematocrit 44.8 % (42.0-52.0); Imm Gran Abs Auto 0.01 X10*3/uL (0.00-0.03); Imm Gran Pct Auto 0.2 % (0.0-0.4); Immature Retic Fraction 18.2 % (2.3-13.4); Lymphocytes Absolute Auto 1.5 X10*3/uL (1.2-4.9); Lymphocytes Percent Auto 29.3 % (20-40); Mean Corpuscular Hemoglobin 23.7 pg (27.0-33.0); Mean Corpuscular Volume 81.6 fL (80.0-98.0); Monocytes Absolute Auto 0.5 X10*3/uL (0.1-1.2); Monocytes Percent Auto 8.7 % (2-11); Neutrophils Absolute Auto 2.9 x10*3/uL (2.0-8.3); Platelet Count 357 X10*3/uL (160-400); Red Blood Count 5.49 X10*6/uL (4.60-5.80); Red Cell Distribution Width 19.3 % (11.0-16.0); Retic HGB Equivalent 26.3 pg (30.0-35.0); Reticulocyte Percent 0.9 % (0.5-1.8); Reticulocytes Absolute 0.051 X10*6/uL (0.026-0.095); White Blood Count 5.2 X10*3/uL (4.8-10.8)
[2023-05-31 12:41] LABS: Alanine Aminotransferase 33 U/L (0-40); Albumin Level 4.2 g/dL (3.5-5.0); Alkaline Phosphatase 93 U/L (39-117); Anion Gap 16 (12-20); Aspartate Amino Transferase 35 U/L (5-37); Bilirubin Total 0.3 mg/dL (0.0-1.0); Blood Urea Nitrogen 16 mg/dL (9-16); Calcium 9.7 mg/dL (8.4-10.2); Carbon Dioxide 27 mmol/L (22-29); Chloride 106 mmol/L (96-108); Estimated Glomerular Filt Rate > 60; Glucose Fasting 124 mg/dL (60-99); Iron 32 mcg/dL (45-160); Percent Iron Saturation 8 % (15-50); Potassium 3.7 mmol/L (3.3-5.1); Sodium 145 mmol/L (135-145); Total Iron Binding Capacity 413 mcg/dL (228-428); Total Protein 7.2 g/dL (6.5-8.0); Unsaturated Iron Binding 381 ug/dL
[2023-05-31 12:42] LABS: Vitamin B12 334 pg/mL (200-900)
== END 2023-05-31 09:00 | disposition home or self-care (01) ==
LOC: HO.WFDLDS 08:59
PROVIDERS: Visit Provider Family Medicine
DX: Z00.00 Encounter for general adult medical examination without abnormal findings (principal); E53.8 Deficiency of other specified B group vitamins; D64.9 Anemia, unspecified
CPT/HCPCS: 36415; 80053; 82607; 82746; 83540; 85025; 85045

== ENCOUNTER 2023-06-28 14:37 | Outpatient (AMB) | payer BC, SELFPAY ==
--- NOTE | 2023-06-28 14:43 | A.OFFPC_ITS ---
Vital Signs 06/28/23 14:44 Height 6 ft 2 in Weight 216 lb 4 oz BMI 27.8 BP 114/62 Blood Pressure Location Lt brachial Position Sitting Pulse 90 Pulse Source Pulse Oximeter Pulse Oximetry (%) 97 Oxygen Delivery Method Room Air Intake Visit Reasons: f/u diabetes Intake Note: Patient is here to follow up on his diabetes. Patient would like refill of Farxiga. Allergies No Known Allergies [No Known Allergies*] Allergy (Verified 06/28/23 14:46) Medication List - Last Reconciled 06/28/23 by Ricco Kenny MD atorvastatin 80 mg PO BEDTIME blood sugar diagnostic (FreeStyle Lite Strips) DX: E11.9, test blood sugar 2 times a day, 90 days blood-glucose meter (FreeStyle Lite Meter kit) DX: E11.9, test blood sugar 2 times a day, duration 999 days bupropion HCl XL 150 mg PO QAM dapagliflozin propanediol (Farxiga) 10 mg PO DAILY dulaglutide 3 mg (0.5 mL) subcut QWEEK 28 days ferrous sulfate 325 mg PO DAILY 30 days fluoxetine 40 mg PO DAILY 90 days furosemide 40 mg PO DAILY 14 days gabapentin 300 mg PO TID glipizide 10 mg PO BID ibuprofen 1 tab PO TID lancets (FreeStyle Lancets) As directed meloxicam 15 mg PO DAILY 30 days metformin 850 mg PO TID 90 days metoprolol succinate ER 100 mg PO DAILY omeprazole 20 mg PO BID sodium polystyrene sulfonate 15 grams PO DAILY 10 days sucralfate 2 grams (2 x 1 gram) PO DAILY Tobacco use date assessed: 02/26/23 Dental Screening Dental Screen Date: 02/26/23 HPI f/u diabetes HPI Details 52 y/o male presents to f/u diabetes. Had increased his Trulicity and continued his other diabetes medications as prescribed. Last A1c 02/26/23 7.2%. A1c today 06/28/23 6.9%. He is on dulaglutide 3mg, glipizide 10mg b.i.d, metformin 850mg t.i.d. Hx of hyperkalemia and improving. [facility] Medical History History of rosacea SOLEDAD (obstructive sleep apnea) Cervical radiculopathy History of tachycardia Diabetes GERD (gastroesophageal reflux disease) Anxiety Hypertension Hyperlipidemia LDL goal <100 Surgical History History of esophagogastroduodenoscopy (EGD) Hx of left knee surgery History of appendectomy History of cervical discectomy Hx of cholecystectomy Family History Father Diabetes Bladder cancer Family history of cancer Mother Heart problem Chronic GERD Paternal Aunt Cancer Social History Household Members: Family Housing: House Alcohol intake: current Alcohol intake frequency: a few times a week Patient Tobacco Use Status: Never used Tobacco e-Cigarette/Vaping Use: Never Used Second Hand Smoke Exposure: No service: No Current occupational status: employed Current occupational exposures/hazards: No Sexual orientation: Unable to collect Gender identity: Unable to collect Cognitive needs: No Hearing needs: No Vision needs: No Questionnaire PHQ-9 Over the last 2 weeks, how often have you been bothered by any of the following problems? 1. Little interest or pleasure in doing things: not at all 2. Feeling down, depressed, or hopeless: not at all 3. Trouble falling or staying asleep, or sleeping too much: not at all 4. Feeling tired or having little energy: not at all 5. Poor appetite or overeating: not at all 6. Feeling bad about yourself - or that you are a failure or have let yourself or your family down: not at all 7. Trouble concentrating on things, such as reading the newspaper or watching television: not at all 8. Moving or speaking so slowly that other people could have noticed. Or the opposite - being so fidgety or restless that you have been moving around a lot more than usual: not at all 9. Thoughts that you would be better off or of hurting yourself in some way: not at all Total score: 0 Depression Screening Interpretation: Negative Depression Screening Done: Yes Source: Developed by Drs. Juanito Snell, Danii Van, James Easley and colleagues, with an educational herminia from [employer]. Thrive Questionnaire Date Thrive assessed: 04/28/21 AUDIT C Alcohol Use Questionnaire (AUDIT-C) 1. How often do you have a drink containing alcohol?: 4 or more times a week 2. How many drinks containing alcohol do you have on a typical day when you are drinking?: 1 or 2 3. How often do you have six or more drinks on one occasion?: Never Total Score: 4 ZAY-7 AMB Questionnaire ZAY-7 Date ZAY - 7 assessed: 06/28/23 Feeling nervous, anxious, or on edge: 0 = Not at all Not being able to stop or control worryin = Not at all Worrying too much about different things: 0 = Not at all Trouble relaxin = Not at all Being so restless that it is hard to sit still: 0 = Not at all Becoming easily annoyed or irritable: 0 = Not at all Feeling afraid as if something awful might happen: 0 = Not at all Total ZAY-7 score (0-4 normal; 5-9 mild; 10-14 moderate; 15-21 severe): 0 Source: Developed by Drs. Juanito Snell, Danii Van, James Easley and colleagues, with an educational herminia from [employer]. Review of Systems Const Denies chills, Denies fatigue, Denies fever(s), Denies headache(s) and Denies weakness ENT Denies dizziness and Denies headache(s) Card Denies chest pain, Denies lightheadedness, Denies dyspnea and Denies other (Palpitations) Resp Denies cough, Denies dyspnea, Denies wheezing and Denies other ( shortness of breath) Musc Denies numbness and Denies tingling Neuro Denies dizziness, Denies headache(s), Denies numbness, Denies tingling, Denies paresthesias and Denies weakness Psych Denies anxiety and Denies depression Endo Denies fatigue Aller/Immun Denies wheezing Physical exam (Primary Care) Vital Signs: Last Vital Signs Pulse 90 06/28/23 14:44 BP 114/62 06/28/23 14:44 Pulse Ox 97 06/28/23 14:44 Oxygen Delivery Method Room Air 06/28/23 14:44 BMI result Body Mass Index 27.8 Tobacco/Smoking Status: Tobacco use Status Tobacco use date assessed 02/26/23 06/28/23 14:44 Patient Tobacco Use Status Never used Tobacco 06/28/23 14:44 e-Cigarette/Vaping Use Never Used 06/28/23 14:44 PHQ-9: PHQ-9 Score PHQ-9: Total score 0 06/28/23 15:37 Depression Screening Interpretation: Negative Thrive Assessment: Date of Thrive Assessment Date Thrive assessed 04/28/21 06/28/23 14:44 Const General: no acute distress and well developed Nutritional Appearance: well nourished Orientation/consciousness: patient oriented x3 HENMT Head: Yes normocephalic and Yes atraumatic Eyes General: appearance normal, both eyes and all related structures Pupils: Equal, round and reactive pupils present EOM: EOMs intact bilaterally Resp Effort & Inspection: normal respiratory effort Auscultation: clear to auscultation bilaterally Cardio Rate: regular rate Rhythm: regular rhythm Heart sounds: S1 normal heart sound present, S2 normal heart sound present, no gallops, no murmurs and no rubs Neuro General: patient oriented x3 and gait normal Cranial nerves: Yes Equal, round and reactive pupils present Psych Affect: normal affect Results AMB Hemoglobin A1c AMB Hemoglobin A1c 6.9 % Last Edit by Maricruz Holley CMA on 06/28/23 15:01 Results Reviewed Results Reviewed: Laboratory Last Values Hgb A1c (Clinic) 6.9 % (4.0-6.0) H 06/28/23 14:56 Assessment and Plan Assessment & Plan (1) Diabetes type 2, controlled: Code(s): E11.9 - Type 2 diabetes mellitus without complications Plan: A1c?improved?from?7.3%?to?6.9%?after?increasing?Trulicity Good?control.??Goal?is?less?than?7.0% Continue?current?medication?regimen (2) Anemia: Code(s): D64.9 - Anemia, unspecified Plan: Improving?with?iron?supplementation Recheck?CBC (3) Hyperkalemia: Code(s): E87.5 - Hyperkalemia Plan: Potassium?had?been?rather?high?and?this?was?corrected.??Most?recent?potassium?le sid?was?okay He?is?not?taking?medication?for?this?any?longer He?will?recheck?labs?and?if?potassium?is?elevated?we?will?resume?medication?to?c orrect?this (4) Right shoulder pain: Code(s): M25.511 - Pain in right shoulder Plan: Start?physical?therapy?and?right?shoulder?pain?is?improving Orders: Orders AMB Hemoglobin A1c Today Z13.9 - Encounter for screening, unspecified Coding Level of Care Code Est Pt Level 3 (51596) Diagnoses Diabetes type 2, controlled E11.9 Anemia D64.9 Hyperkalemia E87.5 Right shoulder pain M25.511
[2023-06-28 14:44] VITALS: BP 114/62; PULSE 90; O2SAT 97; BMI 27.8
== END 2023-06-28 15:53 | disposition home or self-care (01) ==
PROVIDERS: PCP Family Medicine; Visit Provider Family Medicine
DX: E11.9 Type 2 diabetes mellitus without complications (principal); D64.9 Anemia, unspecified; E87.5 Hyperkalemia; M25.511 Pain in right shoulder
CPT/HCPCS: 83036; 99213

== ENCOUNTER 2023-07-05 07:00 | Outpatient (RCR) | payer BC, SELFPAY ==
--- NOTE | 2023-06-18 12:08 | MHC.PT.EP ---
[facility] [place] [facility] [place] [facility] [place] Office [address] Rob Bolivar [address] [phone] F: [phone] F: [phone] F: [phone] F: [phone] Physical Therapy Plan of Care Date of Evaluation: 06/11/23 Date of Surgery: Diagnosis: Pain in R shoulder, M25.511, cervicalgia M54.2, M54,12 radiculopathy, cervical region, right shoulder pain, cervicalgia, radiculitis of right cervical region signed by Dr. 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 Pt has history of C5-C7 discectomy with fusion performed in 2010 ([facility]) in addition to having sx in R shoulder pain for over a year. Pt reports having previous shoulder injection three months ago from [facility] (states was told he had a calcium deposit). Pt has been applying heat to shoulder and never followed through with previous recommendation for PT (was referred over three months ago by [facility]). Pt was again referred by PCP Dr. Kenny on 02/28/24. Pt exhibits decreased R shoulder AROM compared to L, expresses pain and decreased cervical rotation due to hx muscle tension/tightness. Pt currently lacks formal exercise regimen. Pt's PMH significant for type II, HTN, L knee surgery, appendectomy, and history of sinus tachycardia. Pt expressing 50lb weight loss in the past year or so. Pt exhibits good rehab potential and was educated re: goals of PT following the completion of PT eval. Pt agreeable to attending skilled PT services at a frequency of 1x/week to address listed impairments, improve mobility, and maximize function. Pt verbalizes desire to increase strength and resume ability to exercise again. Frequency and Duration: The patient will be seen 1-2x/week x 4-6 weeks Short Term Goals: 1. AAROM R shoulder flexion to 130 degrees. 2. AAROM R shoulder abduction to 130 degrees. 3. Pt will demonstrate improved strength lower trap to 4/5. 4. Pt will demonstrate improved strength middle trap to 4/5. 5. Initiate self care/HEP program. [facility] Goals: 1. I HEP program for self care. 2. Pt will demonstrate strength R shoulder ER to 5/5. 3. SPADI score improvement by 25%. 4. Pt will resume sitting position with improved tolerance. Treatment Plan: Modalities to reduce pain, spasms and effusion. Manual therapy to restore motion and function. Therapeutic exercise to improve strength and flexibility. Neuromuscular re-education for posture and balance. Therapeutic activities to return to functional activities of daily living. Electronically signed by: Lola Mensah, PT, DPT Please sign and return to therapist. Thank you for your referral.
== END 2023-09-17 07:44 | disposition home or self-care (01) ==
LOC: HO.PTWFD 07:00
PROVIDERS: PCP Family Medicine; Visit Provider Family Medicine
DX: M25.511 Pain in right shoulder (principal); M54.2 Cervicalgia; M54.12 Radiculopathy, cervical region
CPT/HCPCS: 97110; 97140; 97162; 97535

== ENCOUNTER 2023-10-01 08:38 | Outpatient (REF) | payer BC, SELFPAY ==
[2023-10-01 10:55] LABS: MANUAL DIFF FLAG NO
[2023-10-01 11:03] LABS: Basophils Absolute Auto 0.1 X10*3/uL (0.0-0.2); Basophils Percent Auto 0.7 % (0-2); Eosinophils Absolute Auto 0.3 X10*3/uL (0.0-0.4); Eosinophils Percent Auto 4.6 % (0-4); Hematocrit 47.7 % (42.0-52.0); Hemoglobin 14.7 g/dl (14.0-18.0); Imm Gran Abs Auto 0.03 X10*3/uL (0.00-0.03); Imm Gran Pct Auto 0.4 % (0.0-0.4); Lymphocytes Absolute Auto 1.9 X10*3/uL (1.2-4.9); Lymphocytes Percent Auto 25.9 % (20-40); Mean Corpuscular HGB Conc 30.8 g/dl (31.0-36.0); Mean Corpuscular Hemoglobin 27.5 pg (27.0-33.0); Mean Corpuscular Volume 89.2 fL (80.0-98.0); Mean Platelet Volume 9.1 fL (9.4-12.4); Monocytes Absolute Auto 0.6 X10*3/uL (0.1-1.2); Monocytes Percent Auto 8.8 % (2-11); Neutrophils Absolute Auto 4.3 x10*3/uL (2.0-8.3); Neutrophils Percent Auto 59.6 % (45-73); Platelet Count 357 X10*3/uL (160-400); Red Blood Count 5.35 X10*6/uL (4.60-5.80); Red Cell Distribution Width 14.6 % (11.0-16.0); White Blood Count 7.2 X10*3/uL (4.8-10.8)
[2023-10-01 11:12] LABS: Alanine Aminotransferase 44 U/L (0-40); Albumin Level 4.3 g/dL (3.5-5.0); Alkaline Phosphatase 97 U/L (39-117); Anion Gap 16 (12-20); Aspartate Amino Transferase 38 U/L (5-37); Bilirubin Total 0.4 mg/dL (0.0-1.0); Blood Urea Nitrogen 10 mg/dL (9-16); Carbon Dioxide 26 mmol/L (22-29); Chloride 106 mmol/L (96-108); Estimated Glomerular Filt Rate > 60; Glucose Fasting 118 mg/dL (60-99); Iron 59 mcg/dL (45-160); Percent Iron Saturation 15 % (15-50); Potassium 4.9 mmol/L (3.3-5.1); Sodium 143 mmol/L (135-145); Total Iron Binding Capacity 402 mcg/dL (228-428); Total Protein 7.3 g/dL (6.5-8.0); Unsaturated Iron Binding 343 ug/dL
== END 2023-10-01 08:39 | disposition home or self-care (01) ==
LOC: HO.WFDLDS 08:38
PROVIDERS: Visit Provider Family Medicine
DX: Z00.00 Encounter for general adult medical examination without abnormal findings (principal); D64.9 Anemia, unspecified; E87.5 Hyperkalemia
CPT/HCPCS: 36415; 80053; 83540; 85025

== ENCOUNTER 2023-10-02 11:36 | Outpatient (AMB) | payer BC, SELFPAY ==
--- NOTE | 2023-10-02 11:40 | A.OFFPC_ITS ---
Vital Signs 10/02/23 11:42 Height 6 ft 2 in Weight 204 lb 6 oz BMI 26.2 BP 108/62 Blood Pressure Location Lt brachial Position Sitting Pulse 92 Pulse Source Pulse Oximeter Pulse Oximetry (%) 97 Oxygen Delivery Method Room Air Intake Visit Reasons: f/u diabetes, iron deficiency and and hyper anemia Intake Note: Patient is here to follow up on diabetes and iron deficiency anemia, and hyperkalemia Allergies No Known Allergies [No Known Allergies*] Allergy (Verified 10/02/23 11:45) Medication List - Last Reconciled 10/02/23 by Ricco Kenny MD atorvastatin 80 mg PO BEDTIME blood sugar diagnostic (FreeStyle Lite Strips) DX: E11.9, test blood sugar 2 times a day, 90 days blood-glucose meter (FreeStyle Lite Meter kit) DX: E11.9, test blood sugar 2 times a day, duration 999 days bupropion HCl XL 150 mg PO QAM dapagliflozin propanediol (Farxiga) 10 mg PO DAILY 90 days ferrous sulfate 325 mg PO DAILY 30 days fluoxetine 40 mg PO DAILY 90 days furosemide 40 mg PO DAILY 14 days gabapentin 300 mg PO TID glipizide 10 mg PO BID ibuprofen 1 tab PO TID lancets (FreeStyle Lancets) As directed metformin 850 mg PO TID 90 days metoprolol succinate ER 100 mg PO DAILY omeprazole 20 mg PO BID semaglutide (Ozempic) 1 mg (0.75 mL) subcut QWEEK 28 days sodium polystyrene sulfonate 15 grams PO DAILY 10 days Tobacco use date assessed: 02/26/23 Dental Screening Dental Screen Date: 02/26/23 HPI f/u diabetes, iron deficiency and and hyper anemia HPI Details 52 y/o male presents to f/u diabetes, ir on deficiency anemia and hyperkalemia. A1c today 10/02/23 6.7%. He is on ozempic, metformin 850mg t.i.d, glipizide 10mg b.i.d, Farxiga 10mg. Labs were drawn 10/01/23. Reviewed labs with pt. Elevated liver enzymes - AST 38 and ALT 44. [facility] Medical History History of rosacea SOLEDAD (obstructive sleep apnea) Cervical radiculopathy History of tachycardia Diabetes GERD (gastroesophageal reflux disease) Anxiety Hypertension Hyperlipidemia LDL goal <100 Surgical History History of esophagogastroduodenoscopy (EGD) Hx of left knee surgery History of appendectomy History of cervical discectomy Hx of cholecystectomy Family History Father Diabetes Bladder cancer Family history of cancer Mother Heart problem Chronic GERD Paternal Aunt Cancer Social History Household Members: Family Housing: House Alcohol intake: current Alcohol intake frequency: a few times a week Patient Tobacco Use Status: Never used Tobacco e-Cigarette/Vaping Use: Never Used Second Hand Smoke Exposure: No service: No Current occupational status: employed Current occupational exposures/hazards: No Sexual orientation: Unable to collect Gender identity: Unable to collect Cognitive needs: No Hearing needs: No Vision needs: No Questionnaire Thrive Questionnaire Date Thrive assessed: 04/28/21 ZAY-7 AMB Questionnaire ZAY-7 Date ZAY - 7 assessed: 06/28/23 Source: Developed by Drs. Juanito Snell, Danii Van, James Easley and colleagues, with an educational herminia from [employer]. Physical exam (Primary Care) Vital Signs: Last Vital Signs Pulse 92 10/02/23 11:42 BP 108/62 10/02/23 11:42 Pulse Ox 97 10/02/23 11:42 Oxygen Delivery Method Room Air 10/02/23 11:42 BMI result Body Mass Index 26.2 Tobacco/Smoking Status: Tobacco use Status Tobacco use date assessed 02/26/23 10/02/23 11:44 Patient Tobacco Use Status Never used Tobacco 10/02/23 11:44 e-Cigarette/Vaping Use Never Used 10/02/23 11:44 Thrive Assessment: Date of Thrive Assessment Date Thrive assessed 04/28/21 10/02/23 11:44 Results AMB Hemoglobin A1c AMB Hemoglobin A1c 6.7 % Last Edit by Maricruz Holley CMA on 10/02/23 12:04 Results Reviewed Results Reviewed: Laboratory Last Values Hgb A1c (Clinic) 6.7 % (4.0-6.0) H 10/02/23 11:55 Assessment and Plan Assessment & Plan (1) Diabetes type 2, controlled: Code(s): E11.9 - Type 2 diabetes mellitus without complications Plan: A1c?6.7%?is?good?control.??Goal?is Less?than?7.0% Continue?current?medication?regimen (2) Essential hypertension: Code(s): I10 - Essential (primary) hypertension Plan: Blood?pressure?is?controlled.??Goal?is?less?than?140/90 Blood?pressure?is?a?little?on?the?low?side?today?and?encouraged?increased?hydrat ion?as?he?says?he?is?not?drinking?a?lot?of?water. (3) Anemia: Code(s): D64.9 - Anemia, unspecified Plan: He?has?been?taking?iron?daily?and?anemia?has?resolved He?will?switch?to?taking?this?every?other?day?as?he?also?has?mild?abdominal?disc omfort?today. (4) Elevated liver enzymes: Code(s): R74.8 - Abnormal levels of other serum enzymes Plan: Mildly?elevated?liver?enzymes?and?patient?notes?that?he?someti mes?has?too?much?to?drink. Encouraged?him?to?drink?less?alcohol?and?increase?water?intake (5) Abdominal discomfort: Code(s): R10.9 - Unspecified abdominal pain Plan: Mild?abdominal?discomfort?with?mild?tenderness?to?palpation. He?is?on?Ozempic.??Will?check?lipase?level Increase?hydration Will?follow-up Orders: Orders Lipase Today R10.9 - Unspecified abdominal pain AMB Hemoglobin A1c Today Z13.9 - Encounter for screening, unspecified Comprehensive Met. Panel Today R10.9 - Unspecified abdominal pain Coding Level of Care Code Est Pt Level 4 (22366) Diagnoses Diabetes type 2, controlled E11.9 Essential hypertension I10 Anemia D64.9 Elevated liver enzymes R74.8 Abdominal discomfort R10.9
[2023-10-02 11:42] VITALS: BP 108/62; PULSE 92; O2SAT 97; BMI 26.2
== END 2023-10-02 12:29 | disposition home or self-care (01) ==
PROVIDERS: PCP Family Medicine; Visit Provider Family Medicine
DX: E11.9 Type 2 diabetes mellitus without complications (principal); I10 Essential (primary) hypertension; D64.9 Anemia, unspecified; R74.8 Abnormal levels of other serum enzymes; R10.9 Unspecified abdominal pain
CPT/HCPCS: 83036; 99214

== ENCOUNTER 2023-10-02 13:01 | Outpatient (REF) | payer BC, SELFPAY ==
[2023-10-02 14:28] LABS: Alanine Aminotransferase 46 U/L (0-40); Albumin Level 4.4 g/dL (3.5-5.0); Alkaline Phosphatase 120 U/L (39-117); Anion Gap 15 (12-20); Aspartate Amino Transferase 33 U/L (5-37); Bilirubin Total 0.3 mg/dL (0.0-1.0); Blood Urea Nitrogen 11 mg/dL (9-16); Calcium 10.3 mg/dL (8.4-10.2); Carbon Dioxide 27 mmol/L (22-29); Chloride 105 mmol/L (96-108); Estimated Glomerular Filt Rate > 60; Glucose Random 144 mg/dL (60-115); Lipase 43 U/L (8-78); Potassium 4.3 mmol/L (3.3-5.1); Sodium 143 mmol/L (135-145); Total Protein 7.5 g/dL (6.5-8.0)
== END 2023-10-02 13:02 | disposition home or self-care (01) ==
LOC: HO.WFDLDS 13:01
PROVIDERS: Visit Provider Family Medicine
DX: R10.9 Unspecified abdominal pain (principal); Z13.1 Encounter for screening for diabetes mellitus
CPT/HCPCS: 36415; 80053; 83690

== ENCOUNTER 2024-05-29 09:03 | Outpatient (REF) | payer BC, SELFPAY ==
[2024-05-29 12:00] LABS: MANUAL DIFF FLAG NO
[2024-05-29 12:02] LABS: Basophils Absolute Auto 0.1 X10*3/uL (0.0-0.2); Basophils Percent Auto 0.9 % (0-2); Eosinophils Absolute Auto 0.3 X10*3/uL (0.0-0.4); Hematocrit 42.5 % (42.0-52.0); Hemoglobin 14.2 g/dl (14.0-18.0); Imm Gran Abs Auto 0.02 X10*3/uL (0.00-0.03); Imm Gran Pct Auto 0.3 % (0.0-0.4); Lymphocytes Absolute Auto 1.2 X10*3/uL (1.2-4.9); Lymphocytes Percent Auto 20.3 % (20-40); Mean Corpuscular HGB Conc 33.4 g/dl (31.0-36.0); Mean Corpuscular Hemoglobin 30.5 pg (27.0-33.0); Mean Corpuscular Volume 91.2 fL (80.0-98.0); Mean Platelet Volume 8.8 fL (9.4-12.4); Monocytes Absolute Auto 0.6 X10*3/uL (0.1-1.2); Monocytes Percent Auto 10.3 % (2-11); Neutrophils Absolute Auto 3.7 x10*3/uL (2.0-8.3); Neutrophils Percent Auto 63.2 % (45-73); Platelet Count 340 X10*3/uL (160-400); Red Blood Count 4.66 X10*6/uL (4.60-5.80); Red Cell Distribution Width 12.9 % (11.0-16.0); White Blood Count 5.8 X10*3/uL (4.8-10.8)
[2024-05-29 12:04] LABS: Appearance Urine Clear; Color Urine Yellow; Glucose Urine UA >=1000 mg/dL (Negative); Leukocyte Esterase Urine Negative (Negative); Nitrite Urine Negative (Negative); PH 5.5 (5.0-9.0); Specific Gravity - Urine 1.015 (1.005-1.025); UMIC TRIGGER UA YES; Urine Blood Negative (Negative); Urine Ketones Negative (Negative); Urine Protein Negative (Neg-Trace)
[2024-05-29 12:07] LABS: Bacteria Urine None Seen (None Seen); Hyaline Casts Urine 0-2 /LPF (0-2); RBC Urine 0-2 /HPF (0-2); Squamous Epithelial Cell Urine 0-2 /HPF (0-2); WBC Urine 0-5 /HPF (0-5)
[2024-05-29 12:29] LABS: Estimated Average Glucose 151 mg/dL; Hemoglobin A1c % 6.9 % (<6.0)
[2024-05-29 12:33] LABS: Alanine Aminotransferase 36 U/L (0-40); Albumin Level 3.8 g/dL (3.5-5.0); Alkaline Phosphatase 89 U/L (39-117); Anion Gap 12 (12-20); Aspartate Amino Transferase 34 U/L (5-37); Bilirubin Total 0.3 mg/dL (0.0-1.0); Blood Urea Nitrogen 6 mg/dL (9-16); Calcium 8.9 mg/dL (8.4-10.2); Carbon Dioxide 28 mmol/L (22-29); Chloride 107 mmol/L (96-108); Cholesterol 133 mg/dL (<200); Estimated Glomerular Filt Rate > 60; Glucose Fasting 207 mg/dL (60-99); HDL Cholesterol 53 mg/dL (>40); LDL Cholesterol Calculated 69 mg/dL (<100); Potassium 4.7 mmol/L (3.3-5.1); Sodium 142 mmol/L (135-145); Triglycerides 55 mg/dL (<150)
[2024-05-29 12:39] LABS: Creatinine Urine 90.13 mg/dL; Microalbum/Creatinine Ratio Ur 9.9 ug/mg cr (<30)
[2024-05-29 12:42] LABS: Prostate Specific Antigen Scr 0.15 ng/mL (<0.05-4.0)
[2024-05-29 12:50] LABS: TSH reflex Free T4 1.76 uIU/mL (0.32-4.0)
== END 2024-05-29 09:04 | disposition home or self-care (01) ==
LOC: HO.WFDLDS 09:03
PROVIDERS: Visit Provider Family Medicine
DX: Z00.00 Encounter for general adult medical examination without abnormal findings (principal); R10.9 Unspecified abdominal pain; I10 Essential (primary) hypertension; Z12.5 Encounter for screening for malignant neoplasm of prostate; R73.01 Impaired fasting glucose
CPT/HCPCS: 36415; 80053; 80061; 81001; 81003; 82043; 82570; 83036; 84153; 84443; 85025

== ENCOUNTER 2024-05-29 10:34 | Outpatient (AMB) | payer BC, SELFPAY ==
--- NOTE | 2024-05-29 11:24 | MHC.PC.OV ---
Vital Signs 05/29/24 11:34 Height 6 ft 2 in Weight 206 lb BMI 26.4 BP 110/60 Blood Pressure Location Rt brachial Position Sitting Respiration 14 Pulse 81 Pulse Source Pulse Oximeter Temp 98.5 F Temp Source Oral Pulse Oximetry (%) 96 Oxygen Delivery Method Room Air Intake Visit Reasons: Diabetes f/u Intake Note: Patient is here today for dm follow up [employer] Required: No Allergies No Known Allergies [No Known Allergies*] Allergy (Verified 05/29/24 11:31) Medication List - Last Reconciled 05/29/24 by Ricco Kenny MD atorvastatin 80 mg PO BEDTIME 90 days blood sugar diagnostic (FreeStyle Lite Strips) DX: E11.9, test blood sugar 2 times a day, 90 days blood-glucose meter (FreeStyle Lite Meter kit) DX: E11.9, test blood sugar 2 times a day, duration 999 days bupropion HCl XL 150 mg PO QAM ferrous sulfate 325 mg PO DAILY 90 days fluoxetine 40 mg PO DAILY 90 days gabapentin 300 mg PO TID glipizide 10 mg PO BID ibuprofen 1 tab PO TID lancets (FreeStyle Lancets) As directed metformin 850 mg PO TID 90 days metoprolol succinate ER 100 mg PO DAILY omeprazole 20 mg PO BID semaglutide (Ozempic) 1 mg (0.75 mL) subcut QWEEK 28 days sodium polystyrene sulfonate 15 grams PO DAILY 10 days Tobacco use date assessed: 02/26/23 Dental Screening Dental Screen Date: 02/26/23 HPI Diabetes f/u HPI Details 51 y/o male presents to f/u diabetes. Last A1c 10/02/23 6.7%. He is on ozempic, metformin 850mg t.i.d, glipizide 10mg b.i.d, Farxiga 10mg. A1c 05/29/24 7.2%. Hx of elevated liver enzymes, EtOH abuse. Reports ongoing bilateral shoulder pain. Has been followed by [facility]. 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 [facility] Medical History History of rosacea O[place]EDAD (obstructive sleep apnea) Cervical radiculopathy History of tachycardia Diabetes GERD (gastroesophageal reflux disease) Anxiety Hypertension Hyperlipidemia LDL goal <100 Surgical History History of esophagogastroduodenoscopy (EGD) Hx of left knee surgery History of appendectomy History of cervical discectomy Hx of cholecystectomy Family History Father Diabetes Bladder cancer Family history of cancer Mother Heart problem Chronic GERD Paternal Aunt Cancer Social History Household Members: Family Housing: House Alcohol intake: current Alcohol intake frequency: a few times a week Patient Tobacco Use Status: Never used Tobacco e-Cigarette/Vaping Use: Never Used Second Hand Smoke Exposure: No service: No Current occupational status: employed Current occupational exposures/hazards: No Sexual orientation: Unable to collect Gender identity: Unable to collect Cognitive needs: No Hearing needs: No Vision needs: No Questionnaire PHQ-9 Over the last 2 weeks, how often have you been bothered by any of the following problems? 1. Little interest or pleasure in doing things: more than half the days 2. Feeling down, depressed, or hopeless: more than half the days 3. Trouble falling or staying asleep, or sleeping too much: not at all 4. Feeling tired or having little energy: several days 5. Poor appetite or overeating: more than half the days 6. Feeling bad about yourself - or that you are a failure or have let yourself or your family down: not at all 7. Trouble concentrating on things, such as reading the newspaper or watching television: not at all 8. Moving or speaking so slowly that other people could have noticed. Or the opposite - being so fidgety or restless that you have been moving around a lot more than usual: not at all 9. Thoughts that you would be better off or of hurting yourself in some way: not at all Total score: 7 Source: Developed by Drs. Juanito Snell, Danii Van, James Easley and colleagues, with an educational herminia from [employer]. Thrive Questionnaire Date Thrive assessed: 04/28/21 I am a: Patient What is your living situation today?: I have a steady place to live Within the past 12 months, did the food you bought not last and you didn't have the money to get more?: Never true Within the past 12 months, did you worry whether your food would run out before you got money to buy more?: Never true Do you have trouble paying for medicines?: No Do you have trouble getting transportation to medical appointments?: No Do you have trouble paying your heating and electricity bill?: No Do you have trouble taking care of your child, family member or friend?: No Do you have trouble with day-to-day activities such as bathing, preparing meals, shopping, managing finances, etc.?: No Are you currently unemployed and looking for a job?: No Are you interested in more education?: No Please select the resources that you would like help with: None Currently or been in a relationship where the following occur: No concerns reported THRIVE Score: 0 AUDIT C Alcohol Use Questionnaire (AUDIT-C) 1. How often do you have a drink containing alcohol?: 4 or more times a week 2. How many drinks containing alcohol do you have on a typical day when you are drinking?: 3 or 4 3. How often do you have six or more drinks on one occasion?: Weekly Total Score: 8 ZAY-7 AMB Questionnaire ZAY-7 Date ZAY - 7 assessed: 06/28/23 Feeling nervous, anxious, or on edge: 2 = More than half the days Not being able to stop or control worryin = More than half the days Worrying too much about different things: 2 = More than half the days Trouble relaxin = More than half the days Being so restless that it is hard to sit still: 0 = Not at all Becoming easily annoyed or irritable: 2 = More than half the days Feeling afraid as if something awful might happen: 0 = Not at all Total ZAY-7 score (0-4 normal; 5-9 mild; 10-14 moderate; 15-21 severe): 10 Source: Developed by Drs. Juanito Snell, Danii Van, James Easley and colleagues, with an educational herminia from [employer]. Review of Systems Const Denies chills, Denies fatigue, Denies fever(s), Denies headache(s) and Denies weakness ENT Denies dizziness and Denies headache(s) Card Denies dyspnea Resp Denies cough, Denies dyspnea, Denies wheezing and Denies other (shortness of breath) Musc Details: R shoulder pain Denies numbness and Denies tingling Neuro Denies dizziness, Denies headache(s), Denies numbness, Denies tingling and Denies weakness Psych Denies anxiety and Denies depression Endo Denies fatigue Aller/Immun Denies wheezing Physical exam (Primary Care) Vital Signs: Last Vital Signs Temp 98.5 F 05/29/24 11:34 Pulse 81 05/29/24 11:34 Resp 14 05/29/24 11:34 BP 110/60 05/29/24 11:34 Pulse Ox 96 05/29/24 11:34 Oxygen Delivery Method Room Air 05/29/24 11:34 BMI result Body Mass Index 26.4 Tobacco/Smoking Status: Tobacco use Status Tobacco use date assessed 02/26/23 05/29/24 11:24 Patient Tobacco Use Status Never used Tobacco 05/29/24 11:24 e-Cigarette/Vaping Use Never Used 05/29/24 11:24 PHQ-9: PHQ-9 Score PHQ-9: Total score 7 05/29/24 12:03 Thrive Assessment: Date of Thrive Assessment Date Thrive assessed 04/28/21 05/29/24 11:24 Currently or been in a relationship where the following occur: No concerns reported Const General: well developed; No acute distress Nutritional Appearance: well nourished Orientation/consciousness: patient oriented x3 HENMT Head: Yes normocephalic and Yes atraumatic Eyes General: appearance normal, both eyes and all related structures Pupils: Equal, round and reactive pupils present EOM: EOMs intact bilaterally Resp Effort & Inspection: normal respiratory effort Neuro General: patient oriented x3 and gait normal Cranial nerves: Yes Equal, round and reactive pupils present Psych Affect: normal affect Results AMB Hemoglobin A1c AMB Hemoglobin A1c 7.2 % Last Edit by LEXI Leyva on 05/29/24 11:42 Results Reviewed Results Reviewed: Laboratory Last Values Hgb A1c (Clinic) 7.2 % (4.0-6.0) H 05/29/24 11:41 Coding Level of Care Code Est Pt Level 4 (67357) Diagnoses Diabetes type 2, controlled E11.9 Essential hypertension I10 Elevated liver enzymes R74.8 Bilateral shoulder pain M25.511; M25.512 Assessment & Plan Assessment & Plan (1) Diabetes type 2, controlled: Code(s): E11.9 - Type 2 diabetes mellitus without complications Category: Medical Plan: A1c?7.2%?which?is?suboptimal?control.??Goal?is?less?than?7.0% However,?patient?notes?that?he?has?been?off?Ozempic?for?about?a?month. Office?looked?into?this?today?and?it?is?requiring?a?prior?authorization?which?is being?sent?in?today. Continue?current?medication?regimen We?discussed?that?if?prior?authorization?is?denied?by?insurance,?we?will?try?some?Lant (2) Essential hypertension: Code(s): I10 - Essential (primary) hypertension Category: Medical Plan: Blood?pressure?is?controlled.??Goal?is?less?than?140/90 Continue?current?medication (3) Elevated liver enzymes: Code(s): R74.8 - Abnormal levels of other serum enzymes Category: Medical Plan: Has?had?elevated?liver?enzymes?and?history?of?alcohol?abuse. Liver?enzyme?pending?as?he?got?them?drawn?this?morning. Will?follow-up?at?next?visit?or?call?patient?if?action?is?required?sooner (4) Bilateral shoulder pain: Code(s): M25.511 - Pain in right shoulder; M25.512 - Pain in left shoulder Category: Medical Plan Bilateral?shoulder?pain?and?patient?notes?he?has?history?of?calcific?tendinitis?and?has?been?followed?by [facility]. Will?refer?him?back [facility] Orders: Orders AMB Hemoglobin A1c Today E11.9 - Type 2 diabetes mellitus without complications Referrals Orthopedics Referral M25.511 - Pain in right shoulder, M25.512 - Pain in left shoulder Medications: New empagliflozin (Jardiance) 25 mg PO QAM 90 days 90 tabs 3RF Refilled semaglutide (Ozempic) 1 mg (0.75 mL) subcut QWEEK 28 days 3 mL 3RF glipizide 10 mg PO BID 120 tabs 7RF metformin 850 mg PO TID 90 days 270 tabs 4RF
[2024-05-29 11:34] VITALS: BP 110/60; PULSE 81; RESP 14; TEMP 36.9; O2SAT 96; BMI 26.4
== END 2024-05-29 12:25 | disposition home or self-care (01) ==
PROVIDERS: PCP Family Medicine; Visit Provider Family Medicine
DX: E11.9 Type 2 diabetes mellitus without complications (principal); I10 Essential (primary) hypertension; R74.8 Abnormal levels of other serum enzymes; M25.511 Pain in right shoulder; M25.512 Pain in left shoulder

== ENCOUNTER 2024-07-31 11:18 | Outpatient (AMB) | payer BC, SELFPAY ==
--- NOTE | 2024-07-31 11:20 | A.OFFPC_ITS ---
Vital Signs 07/31/24 11:30 Height 6 ft 2 in Weight 191 lb BMI 24.5 BP 98/62 Blood Pressure Location Lt brachial Position Sitting Respiration 16 Pulse 98 Pulse Source Pulse Oximeter Temp 98.1 F Temp Source Oral Pulse Oximetry (%) 97 Oxygen Delivery Method Room Air Intake Visit Reasons: f/u diabetes Intake Note: patient is scheduled for A1c follow-up and patient don't have any concerns today. Allergies No Known Allergies [No Known Allergies*] Allergy (Verified 07/31/24 11:25) Medication List - Last Reconciled 07/31/24 by Ricco Kenny MD atorvastatin 80 mg PO BEDTIME 90 days blood sugar diagnostic (FreeStyle Lite Strips) DX: E11.9, test blood sugar 2 times a day, 90 days blood-glucose meter (FreeStyle Lite Meter kit) DX: E11.9, test blood sugar 2 times a day, duration 999 days bupropion HCl XL 150 mg PO QAM empagliflozin (Jardiance) 25 mg PO QAM 90 days ferrous sulfate 325 mg PO DAILY 90 days fluoxetine 40 mg PO DAILY 90 days gabapentin 300 mg PO TID glipizide 10 mg PO BID ibuprofen 1 tab PO TID lancets (FreeStyle Lancets) As directed metformin 850 mg PO TID 90 days metoprolol succinate ER 100 mg PO DAILY omeprazole 20 mg PO BID semaglutide (Ozempic) 1 mg (0.75 mL) subcut QWEEK 28 days Tobacco use date assessed: 07/31/24 Dental Screening Dental Screen Date: 07/31/24 Did you have a dental visit in the last 12 months?: Yes Did you have a dental problem in the last 6 months where you did not have access to dental care?: No Was dental information given to patient?: No HPI f/u diabetes HPI Details 53 y/o male presents to f/u diabetes. He had not been able to afford [employer] and had sent a script for Jardiance. Continuing metformin and glipizide as prescribed. A1c 05/29/24 7.2%. Blood pressure today 98/62, 98p. He is on metoprolol 100mg daily. HPI Comments History of Present Illness Details Documentation assistance for Ricco Kenny MD, was provided by Tony Lewis, [employer] Supervisor on 07/31/2024 at 11:36 AM EST. I, Dr. Kenny, have read, observed, and verified documentation. ?? PFSH Medical History History of rosacea SOLEDAD (obstructive sleep apnea) Cervical radiculopathy History of tachycardia Diabetes GERD (gastroesophageal reflux disease) Anxiety Hypertension Hyperlipidemia LDL goal <100 Surgical History History of esophagogastroduodenoscopy (EGD) Hx of left knee surgery History of appendectomy History of cervical discectomy Hx of cholecystectomy Family History Father Diabetes Bladder cancer Family history of cancer Mother Heart problem Chronic GERD Paternal Aunt Cancer Social History Household Members: Family Housing: House Alcohol intake: current Alcohol intake frequency: a few times a week Patient Tobacco Use Status: Never used Tobacco e-Cigarette/Vaping Use: Never Used Second Hand Smoke Exposure: No service: No Current occupational status: employed Current occupational exposures/hazards: No Sexual orientation: Unable to collect Gender identity: Unable to collect Cognitive needs: No Hearing needs: No Vision needs: No Questionnaire Thrive Questionnaire Date Thrive assessed: 07/31/24 I am a: Patient What is your living situation today?: I have a steady place to live Within the past 12 months, did the food you bought not last and you didn't have the money to get more?: Never true Within the past 12 months, did you worry whether your food would run out before you got money to buy more?: Never true Do you have trouble paying for medicines?: No Do you have trouble getting transportation to medical appointments?: No Do you have trouble paying your heating and electricity bill?: No Do you have trouble taking care of your child, family member or friend?: No Do you have trouble with day-to-day activities such as bathing, preparing meals, shopping, managing finances, etc.?: No Are you currently unemployed and looking for a job?: No Are you interested in more education?: No Please select the resources that you would like help with: None Currently or been in a relationship where the following occur: No concerns reported THRIVE Score: 0 ZAY-7 AMB Questionnaire ZAY-7 Date ZAY - 7 assessed: 07/31/24 Feeling nervous, anxious, or on edge: 0 = Not at all Not being able to stop or control worryin = Not at all Worrying too much about different things: 0 = Not at all Trouble relaxin = Not at all Being so restless that it is hard to sit still: 0 = Not at all Becoming easily annoyed or irritable: 0 = Not at all Feeling afraid as if something awful might happen: 0 = Not at all Total ZAY-7 score (0-4 normal; 5-9 mild; 10-14 moderate; 15-21 severe): 0 Source: Developed by Drs. Juanito Snell, Danii Van, James Easley and colleagues, with an educational herminia from [employer]. ZAY-7 Assessment Billing ZAY-7 Assessment Tool: ZAY-7 Assessment 31550 Review of Systems Const Denies chills, Denies fatigue, Denies fever(s), Denies headache(s) and Denies weakness ENT Denies dizziness and Denies headache(s) Card Denies dyspnea Resp Denies cough, Denies dyspnea, Denies wheezing and Denies other (shortness of breath) Musc Denies numbness and Denies tingling Neuro Denies dizziness, Denies headache(s), Denies numbness, Denies tingling and Denies weakness Psych Denies anxiety and Denies depression Endo Denies fatigue Aller/Immun Denies wheezing Physical exam (Primary Care) Vital Signs: Last Vital Signs Temp 98.1 F 07/31/24 11:30 Pulse 98 07/31/24 11:30 Resp 16 07/31/24 11:30 BP 98/62 07/31/24 11:30 Pulse Ox 97 07/31/24 11:30 Oxygen Delivery Method Room Air 07/31/24 11:30 BMI result Body Mass Index 24.5 Tobacco/Smoking Status: Tobacco use Status Tobacco use date assessed 07/31/24 07/31/24 11:29 Patient Tobacco Use Status Never used Tobacco 07/31/24 11:29 e-Cigarette/Vaping Use Never Used 07/31/24 11:29 Thrive Assessment: Date of Thrive Assessment Date Thrive assessed 07/31/24 07/31/24 11:29 Currently or been in a relationship where the following occur: No concerns reported Const General: well developed; No acute distress Nutritional Appearance: well nourished Orientation/consciousness: patient oriented x3 HENMT Head: Yes normocephalic and Yes atraumatic Eyes General: appearance normal, both eyes and all related structures Pupils: Equal, round and reactive pupils present EOM: EOMs intact bilaterally Resp Effort & Inspection: normal respiratory effort Neuro General: patient oriented x3 and gait normal Cranial nerves: Yes Equal, round and reactive pupils present Psych Affect: normal affect Coding Level of Care Code Est Pt Level 3 (50532) Diagnoses Diabetes type 2, controlled E11.9 Essential hypertension I10 Additional Codes ZAY-7 Assessment Billing - ZAY-7 Assessment Tool: ZAY-7 Assessment [id number] ([id number]) Assessment & Plan Assessment & Plan (1) Diabetes type 2, controlled: Code(s): E11.9 - Type 2 diabetes mellitus without complications Category: Medical Plan: A1c?6.0%.??Controlled.??Goal?is?less?than?7.0% He?is?taking?Ozempic,?metformin?and?Jardiance as?prescribed. Does?not?currently?have?testing?supplies?so?I?have?refilled?those Diabetic?retinal?exam?in?March?was?negative Continue?current?medication?regimen?and?test?blood?sugars Call?for?any?problems (2) Essential hypertension: Code(s): I10 - Essential (primary) hypertension Category: Medical Plan: Blood?pressure?is?little?low.??He?has?been?losing?weight?since? he?has?been?on?the?Ozempic. Decrease?metoprolol?from?100?mg?daily?to?50?mg?daily Hydrate?well Call?still?having?problems?with?blood?pressure. Medications: Changed From metoprolol succinate ER 100 mg PO DAILY 90 tabs 1RF To metoprolol succinate ER 50 mg PO DAILY 90 days 90 tabs 2RF Refilled blood sugar diagnostic (FreeStyle Lite Strips) DX: E11.9, test blood sugar 2 times a day, 90 days 200 ea 4RF E11.9 - Type 2 diabetes mellitus without complications blood-glucose meter (FreeStyle Lite Meter kit) DX: E11.9, test blood sugar 2 times a day, duration 999 days 1 ea 0RF E11.9 - Type 2 diabetes mellitus without complications lancets (FreeStyle Lancets) As directed 200 ea 4RF DX: E11.9, test blood sugar 2 times a day, 90 day E11.9 - Type 2 diabetes mellitus without complications
[2024-07-31 11:30] VITALS: BP 98/62; PULSE 98; RESP 16; TEMP 36.7; O2SAT 97; BMI 24.5
== END 2024-07-31 11:49 | disposition home or self-care (01) ==
LOC: HO.HMCFM 11:19
PROVIDERS: PCP Family Medicine; Visit Provider Family Medicine
DX: E11.9 Type 2 diabetes mellitus without complications (principal); I10 Essential (primary) hypertension

== ENCOUNTER → 2024-07-31 11:18 | Outpatient (BNVA) | payer BC, SELFPAY | PROVIDERS: PCP Family Medicine; Visit Provider Family Medicine | DX: E11.9 Type 2 diabetes mellitus without complications (principal); I10 Essential (primary) hypertension; Z79.84 Long term (current) use of oral hypoglycemic drugs; Z79.899 Other long term (current) drug therapy | CPT/HCPCS: 96127 ==

== ENCOUNTER 2024-11-20 08:24 | Outpatient (AMB) | payer BC, SELFPAY ==
--- NOTE | 2024-11-20 08:27 | A.OFFPC_ITS ---
Vital Signs 11/20/24 08:34 Height 6 ft 2 in Weight 189 lb BMI 24.3 BP 104/67 Blood Pressure Location Lt brachial Position Sitting Respiration 16 Pulse 91 Pulse Source Pulse Oximeter Temp 98.2 F Temp Source Oral Pulse Oximetry (%) 98 Oxygen Delivery Method Room Air Intake Visit Reasons: f/u HTN, diabetes Intake Note: patient here for follow up on HTN and DM Device Processing Engineer Required: No Allergies No Known Allergies (No Known Allergies*) Allergy (Verified 11/20/24 08:33) Medication List - Last Reconciled 11/20/24 by Ricco Kenny MD atorvastatin 80 mg PO BEDTIME 90 days blood sugar diagnostic (FreeStyle Lite Strips) DX: E11.9, test blood sugar 2 times a day, 90 days blood-glucose meter (FreeStyle Lite Meter kit) DX: E11.9, test blood sugar 2 times a day, duration 999 days bupropion HCl XL 150 mg PO QAM empagliflozin (Jardiance) 25 mg PO QAM 90 days ferrous sulfate 325 mg PO DAILY 90 days fluoxetine 40 mg PO DAILY 90 days gabapentin 300 mg PO TID glipizide 10 mg PO BID ibuprofen 1 tab PO TID lancets (FreeStyle Lancets) As directed metformin 850 mg PO TID 90 days metoprolol succinate ER 50 mg PO DAILY 90 days omeprazole 20 mg PO BID semaglutide (Ozempic) 1 mg (0.75 mL) subcut QWEEK 28 days Tobacco use date assessed: 11/20/24 Dental Screening Dental Screen Date: 11/20/24 Did you have a dental visit in the last 12 months?: No Did you have a dental problem in the last 6 months where you did not have access to dental care?: No Was dental information given to patient?: Patient has dentist HPI f/u HTN, diabetes HPI Details Patient returns for follow-up diabetes and hypertension Had increased his Ozempic at last visit. A1c now 5.9% And decrease metoprolol to 50 mg daily as his blood pressure was a little low. Patient has complaints of worsening erectile dysfunction and also mild hesitancy. Last PSA in May was within range Otherwise feels well today He is exercising and getting plenty of sleep [facility] Medical History History of rosacea SOLEDAD (obstructive sleep apnea) Cervical radiculopathy History of tachycardia Diabetes GERD (gastroesophageal reflux disease) Anxiety Hypertension Hyperlipidemia LDL goal <100 Surgical History History of esophagogastroduodenoscopy (EGD) Hx of left knee surgery History of appendectomy History of cervical discectomy Hx of cholecystectomy Family History Father Diabetes Bladder cancer Family history of cancer Mother Heart problem Chronic GERD Paternal Aunt Cancer Social History Household Members: Family Housing: House Alcohol intake: current Alcohol intake frequency: a few times a week Patient Tobacco Use Status: Never used Tobacco e-Cigarette/Vaping Use: Never Used Second Hand Smoke Exposure: No service: No Current occupational status: employed Current occupational exposures/hazards: No Sexual orientation: Unable to collect Gender identity: Unable to collect Cognitive needs: No Hearing needs: No Vision needs: No Questionnaire Thrive Questionnaire Date Thrive assessed: 05/29/24 I am a: Patient What is your living situation today?: I have a steady place to live Within the past 12 months, did the food you bought not last and you didn't have the money to get more?: Never true Within the past 12 months, did you worry whether your food would run out before you got money to buy more?: Never true Do you have trouble paying for medicines?: No Do you have trouble getting transportation to medical appointments?: No Do you have trouble paying your heating and electricity bill?: No Do you have trouble taking care of your child, family member or friend?: No Do you have trouble with day-to-day activities such as bathing, preparing meals, shopping, managing finances, etc.?: No Are you currently unemployed and looking for a job?: No Are you interested in more education?: No Please select the resources that you would like help with: None Currently or been in a relationship where the following occur: No concerns reported THRIVE Score: 0 ZAY-7 AMB Questionnaire ZAY-7 Date ZAY - 7 assessed: 07/31/24 Source: Developed by Drs. Juanito Snell, Danii Van, James Easley and colleagues, with an educational herminia from [employer]. Review of Systems Const Denies chills, Denies fatigue, Denies fever(s), Denies headache(s) and Denies weakness ENT Denies dizziness and Denies headache(s) Card Denies chest pain, Denies lightheadedness, Denies dyspnea and Denies other (Palpitations) Resp Denies cough, Denies dyspnea, Denies wheezing and Denies other ( shortness of breath) Details: See HPI Musc Denies numbness and Denies tingling Neuro Denies dizziness, Denies headache(s), Denies numbness, Denies tingling, Denies paresthesias and Denies weakness Psych Denies anxiety and Denies depression Endo Denies fatigue Aller/Immun Denies wheezing Physical exam (Primary Care) Vital Signs: Last Vital Signs Temp 98.2 F 11/20/24 08:34 Pulse 91 11/20/24 08:34 Resp 16 11/20/24 08:34 BP 104/67 11/20/24 08:34 Pulse Ox 98 11/20/24 08:34 Oxygen Delivery Method Room Air 11/20/24 08:34 BMI result Body Mass Index 24.3 Tobacco/Smoking Status: Tobacco use Status Tobacco use date assessed 11/20/24 11/20/24 08:38 Patient Tobacco Use Status Never used Tobacco 11/20/24 08:28 e-Cigarette/Vaping Use Never Used 11/20/24 08:28 Thrive Assessment: Date of Thrive Assessment Date Thrive assessed 05/29/24 11/20/24 08:28 Currently or been in a relationship where the following occur: No concerns reported Const General: no acute distress and well developed Nutritional Appearance: well nourished Orientation/consciousness: patient oriented x3 [facility]: Yes normocephalic and Yes atraumatic Eyes General: appearance normal, both eyes and all related structures Pupils: Equal, round and reactive pupils present EOM: EOMs intact bilaterally Resp Effort & Inspection: normal respiratory effort Auscultation: clear to auscultation bilaterally Cardio Rate: regular rate Rhythm: regular rhythm Heart sounds: S1 normal heart sound present, S2 normal heart sound present, no gallops, no murmurs and no rubs Neuro General: patient oriented x3 and gait normal Cranial nerves: Yes Equal, round and reactive pupils present Psych Affect: normal affect Coding Level of Care Code Est Pt Level 4 (87266) Diagnoses Essential hypertension I10 Diabetes type 2, controlled E11.9 Erectile dysfunction N52.9 Urinary hesitancy R39.11 Screening for prostate cancer Z12.5 Screening for colon cancer Z12.11 Assessment & Plan Assessment & Plan (1) Essential hypertension: Code(s): I10 - Essential (primary) hypertension Category: Medical Plan: Blood pressure still a little on the low side. Will decrease metoprolol again from 50 mg daily To 25 mg seem hydrate well (2) Diabetes type 2, controlled: Code(s): E11.9 - Type 2 diabetes mellitus without complications Category: Medical Plan: A1c now 5.9%. Good control. Goal is less than 7.0% Continue current medication regimen Continue diabetic diet (3) Erectile dysfunction: Code(s): N52.9 - Male erectile dysfunction, unspecified Category: Medical Plan: Patient notes worsening erectile dysfunction. He can try Cialis Will decrease metoprolol as above Check testosterone level & labs Referred to urology (4) Urinary hesitancy: Code(s): R39.11 - Hesitancy of micturition Category: Medical Plan: Mild urinary hesitancy Most recent PSA was within normal range Patient is referred to Urology (5) Screening for prostate cancer: Code(s): Z12.5 - Encounter for screening for malignant neoplasm of prostate Category: Medical Plan: PSA was within normal range in May (6) Screening for colon cancer: Comment: 2022= negative scope repeat in 10 years Code(s): Z12.11 - Encounter for screening for malignant neoplasm of colon Category: Medical Plan: Colonoscopy in 2022 was negative He will follow-up in 2032 Orders: Orders Testosterone, Free/Total Today N52.9 - Male erectile dysfunction, unspecified TSH reflex Free T4 Today Z00.00 - Encounter for general adult medical examination without abnormal findings Lipid Panel Today Z00.00 - Encounter for general adult medical examination without abnormal findings Microalbumin, Random (w Creat) Today I10 - Essential (primary) hypertension Comprehensive Met. Panel Today N52.9 - Male erectile dysfunction, unspecified UA CC w/rflx Micro + Cult Today Z00.00 - Encounter for general adult medical examination without abnormal findings Referrals Urology Referral N52.9 - Male erectile dysfunction, unspecified, R39.11 - Hesitancy of micturition Medications: New tadalafil (Cialis) administer approximately 30min before sexual activity; do not use more than 1 dose per 24hrs 10 mg PO DAILY PRN 10 tabs 4RF sexual activity 30 days Changed From metoprolol succinate ER 50 mg PO DAILY 90 days 90 tabs 2RF To metoprolol succinate ER 25 mg PO DAILY 90 tabs 2RF 90 days
[2024-11-20 08:34] VITALS: BP 104/67; PULSE 91; RESP 16; TEMP 36.8; O2SAT 98; BMI 24.3
== END 2024-11-20 09:02 | disposition home or self-care (01) ==
LOC: HO.HMCFM 08:25
PROVIDERS: PCP Family Medicine; Visit Provider Family Medicine
DX: I10 Essential (primary) hypertension (principal); E11.9 Type 2 diabetes mellitus without complications; N52.9 Male erectile dysfunction, unspecified; R39.11 Hesitancy of micturition; Z12.5 Encounter for screening for malignant neoplasm of prostate; Z12.11 Encounter for screening for malignant neoplasm of colon

== ENCOUNTER → 2024-11-20 08:24 | Outpatient (BNVA) | payer BC, SELFPAY | PROVIDERS: PCP Family Medicine; Visit Provider Family Medicine | DX: I10 Essential (primary) hypertension (principal); E11.9 Type 2 diabetes mellitus without complications; N52.9 Male erectile dysfunction, unspecified; R39.11 Hesitancy of micturition | CPT/HCPCS: 83036 ==

== ENCOUNTER 2025-02-03 08:42 | Outpatient (AMB) | payer BC, SELFPAY ==
--- NOTE | 2025-02-03 08:52 | MHC.OFFVIS ---
Intake Visit Reasons: urinary hesitancy/ ED Intake Note: Patient is present for URINARY HESITANCY/ED Urology Medication:TADALAFIL Antibiotic Allergy:NONE Blood Thinner:NONE TODAY'S PVR:0ML'S E Commerce Marketing Analyst Required: No Allergies No Known Allergies (No Known Allergies*) Allergy (Verified 02/03/25 09:48) Medication List - Last Reconciled 02/03/25 by ROSIO Byrd atorvastatin 80 mg PO BEDTIME 90 days blood sugar diagnostic (FreeStyle Lite Strips) DX: E11.9, test blood sugar 2 times a day, 90 days blood-glucose meter (FreeStyle Lite Meter kit) DX: E11.9, test blood sugar 2 times a day, duration 999 days bupropion HCl XL 150 mg PO QAM empagliflozin (Jardiance) 25 mg PO QAM 90 days ferrous sulfate 325 mg PO DAILY 90 days fluoxetine 40 mg PO DAILY 90 days gabapentin 300 mg PO TID glipizide 10 mg PO BID ibuprofen 1 tab PO TID lancets (FreeStyle Lancets) As directed metformin 850 mg PO TID 90 days metoprolol succinate ER 25 mg PO DAILY 90 days omeprazole 20 mg PO BID semaglutide (Ozempic) 1 mg (0.75 mL) subcut QWEEK 28 days tadalafil (Cialis) 10 mg PO DAILY PRN 30 days HPI Comments Details: Ruben is a very pleasant 54-year-old male patient of Dr. Kenny. He has a past medical history of hyperlipidemia, type 2 diabetes, obstructive sleep apnea, cervical radiculopathy, GERD, anxiety, and hypertension. He presents to the office today as a new patient for straining with urination as well as erectile dysfunction. In discussion with the patient today he reports urinary symptoms and erectile dysfunction have been present for over a year however feels they are worsening. He does describe episodes of being able to obtain an erection however feel maintaining erection that is adequate for penetration to be difficult. He also reports feeling the need to strain with urination and feels at times he experiences urinary dribbling. He denies urinary urgency, urinary frequency, incontinence, nocturia, hematuria, dysuria, foul smelling urine, flank pain, fever, and or chills. In review of patient's chart it appears PSA has been ordered and performed. These results were reviewed and communicated with the patient today. PSA: 12/13 0.2, 10/14 0.2, 06/17 0.2 A1c: 12/13 8.4, 09/15 7.0. 03/17 7.2, 07/17 6.9, 10/16 6.7, 06/17 7.2 11/17 5.9 We did discussed potential causes of ED as well as straining with urination. We discussed further treatment options and risks and benefits of these treatment options. We also discussed lifestyle modifications to assist with these urological conditions. In office urinalysis results reviewed with the patient today. PVR 0 mL. All questions were answered. He otherwise offers no other issues or concerns at this time. Urinary Symptoms Review - Straining during urination with feeling of incomplete bladder emptying - Symptoms progressively worsening over the past year [facility] Medical History History of rosacea SOLEDAD (obstructive sleep apnea) Cervical radiculopathy History of tachycardia Diabetes GERD (gastroesophageal reflux disease) Anxiety Hypertension Hyperlipidemia LDL goal <100 Surgical History History of esophagogastroduodenoscopy (EGD) Hx of left knee surgery History of appendectomy History of cervical discectomy Hx of cholecystectomy Family History Father Diabetes Bladder cancer Family history of cancer Mother Heart problem Chronic GERD Paternal Aunt Cancer Social History Household Members: Family Housing: House Alcohol intake: current Alcohol intake frequency: a few times a week Patient Tobacco Use Status: Never used Tobacco e-Cigarette/Vaping Use: Never Used Second Hand Smoke Exposure: No service: No Current occupational status: employed Current occupational exposures/hazards: No Sexual orientation: Unable to collect Gender identity: Unable to collect Cognitive needs: No Hearing needs: No Vision needs: No Review of Systems Const All systems reviewed & are unremarkable except as noted in HPI and below Physical Exam Const General: cooperative, healthy appearing, comfortable, no acute distress, well developed, alert and awake Orientation/consciousness: patient oriented x3 Limitations: no limitations HEENT Head: Yes normal to inspection, Yes normocephalic and Yes atraumatic Ears: hearing grossly normal bilaterally Eyes General: appearance normal, both eyes and all related structures Neck Neck: Yes normal visual inspection and Yes trachea midline Chest Chest palpation & inspection: normal inspection of the chest Resp Effort & Inspection: normal respiratory effort and able to speak in complete sentences Cardio Rate: regular rate GI Inspection: Yes normal to inspection General: Yes no CVA tenderness Back/Spine/Pelvis Back: no CVA tenderness Skin General skin exam: no rashes or lesions noted Neuro General: patient oriented x3 Extrem General: Yes normal to inspection Psych Appearance: grossly normal and well kempt Mental Status: mental status grossly normal Speech and movement: Normal speech and movement present and Clear speech present Affect: normal affect Attitude: cooperative Thought process: Normal thought process present Thought content: Normal thought content present Insight: Fair insight present (Psych) Judgement: Fair judgement present (Psych) Office Procedures Post Void Residual Post Residual Void Post Void Residual (PVR): 0 [id number] Void Residual by ultrasound Results AMB Urinalysis, Automated UA Leukoctes 0 Rosario/uL Last Edit by LEXI Fan on 02/03/25 09:05 UA Nitrite Negative Last Edit by LEXI Fan on 02/03/25 09:05 UA Urobilinogen 0.2 mg/dL Last Edit by LEXI Fan on 02/03/25 09:05 UA Protein 15 mg/dL Last Edit by LEXI Fan on 02/03/25 09:05 UA pH 5.5 Last Edit by LEXI Fan on 02/03/25 09:05 UA Blood 0 Jean/uL Last Edit by LEXI Fan on 02/03/25 09:05 UA Specific [place] 1.025 Last Edit by LEXI Fan on 02/03/25 09:05 UA Ketone Negative Last Edit by ELXI Fan on 02/03/25 09:05 UA Bilirubin 1 mg/dL Last Edit by LEXI Fan on 02/03/25 09:05 UA Glucose 500 mg/dL Last Edit by LEXI Fan on 02/03/25 09:05 Results Reviewed Results Reviewed: Laboratory Last Values Urine pH (Auto) 5.5 02/03/25 09:05 Specific [place] (Auto) 1.025 02/03/25 09:05 Urine Protein (Auto) 15 mg/dL 02/03/25 09:05 Glucose (UA)(Auto) 500 mg/dL 02/03/25 09:05 Urine Ketones (Auto) Negative 02/03/25 09:05 Urine Blood (Auto) 0 Jean/uL 02/03/25 09:05 Urine Nitrite (Auto) Negative 02/03/25 09:05 Urine Bilirubin (Auto) 1 mg/dL 02/03/25 09:05 Urine Urobilinogen (Auto) 0.2 mg/dL 02/03/25 09:05 Leukocyte Esterase (Auto) 0 Rosario/uL 02/03/25 09:05 Assessment & Plan Assessment & Plan (1) Straining on urination: Code(s): R39.16 - Straining to void Category: Medical (2) Urinary dribbling: Code(s): N39.43 - Post-void dribbling Category: Medical (3) Erectile dysfunction associated with type 2 diabetes mellitus: Code(s): E11.69 - Type 2 diabetes mellitus with other specified complication; N52.1 - Erectile dysfunction due to diseases classified elsewhere Category: Medical Plan In office urinalysis results reviewed with the patient today; as noted above. PVR 0 mL. We did discussed potential causes of these urological issues; we discussed further treatment options and risks and benefits of these treatment options. We also discussed lifestyle modifications to assist with these urological conditions. All questions were answered. We discussed the importance of management and diabetes for urological health as well as overall health and well-being. Start Flomax as discussed and prescribed. Start Cialis as discussed and prescribed. Will obtain retroperitoneal ultrasound for further assessment evaluation. Will obtain testosterone and A1c for further assessment evaluation. Follow-up in 1-3 months with imaging, labs, and PVR; or sooner with any issues, concerns, and or questions. Orders: Orders US retroperitoneal comp Today E11.69 - Type 2 diabetes mellitus with other specified complication, N39.43 - Post-void dribbling, N52.1 - Erectile dysfunction due to diseases classified elsewhere, R39.16 - Straining to void Hemoglobin A1c Today E11.9 - Type 2 diabetes mellitus without complications AMB Urinalysis Automated Today Z13.9 - Encounter for screening, unspecified Testosterone, Free/Total Today E11.69 - Type 2 diabetes mellitus with other specified complication, N52.1 - Erectile dysfunction due to diseases classified elsewhere Medications: New tadalafil (Cialis) [id number] [facility] [id number] Member [id number] 5 mg PO DAILY 90 tabs 1RF sexual activity 90 days tamsulosin 0.4 mg PO BEDTIME 90 caps 1RF 90 days N13.8 - Other obstructive and reflux uropathy, N40.1 - Benign prostatic hyperplasia with lower urinary tract symptoms Patient Instructions: The patient had an opportunity to ask questions regarding the treatment plan. All questions were answered. Physical exam, labs, and imaging were discussed and reviewed in detail. As well as risks, benefits, and discussion of treatment choices. No major barriers to understanding were identified. The patient expressed understanding and agreement with the above treatment plan. The patient was made aware they should contact our office by phone for worsening of their current condition, the appearance of new symptoms, or with any questions or concerns. Compliance is encouraged with any medications and follow up testing that is ordered. It is a privilege to be allowed the opportunity to participate in? your urological care.? Again, if you have any questions or concerns If you have any questions or concerns please do not hesitate to contact me. The office is [phone]. This note is constructed using voice recognition software. While every effort has been made to ensure accuracy aircraft instrument engineer errors may have been included. Yours sincerely, ROSIO Byrd Coding Level of Care Code New Pt Level 4 (90065) Diagnoses Straining on urination R39.16 Urinary dribbling N39.43 Erectile dysfunction associated with type 2 diabetes mellitus E11.69; N52.1 CPT Codes Post Residual Void - PVR CPT Code: 97522-Utrd Void Residual by ultrasound ([id number])
--- OUTSIDE RECORDS SUMMARY | 2025-02-03 08:53 | XMS_ITS | Data Portability ---
Author Organization [facility], [facility] Address [address] [place] [address] Care Team Providers Care Auto Transport Driver Name Role Phone JESSICA BAPTISTE Primary Care Provider Assessment No assessment recorded. Plan of Treatment Reminders Order Date Submit Date Provider Last Modified By Organization Details Last Modified Time Details Appointments None recorded. Lab None recorded. Referral None recorded. Procedures None recorded. Surgeries None recorded. Imaging XR, shoulder, 2 or more view - ROOM UC 4, left shoulder pain 2023 024 [email or web address] [facility], [address], [place], [address], 4 10:26:38 XR, cervical spine, 1 view 2023 024 [email or web address] [facility], [address], [place], [address], 4 10:26:38 Medication Orders None recorded. Patient TargetsNo targets recorded. Patient InstructionsNo instructions recorded. Reason for Referral None Reported. Procedures Surgical History Date Name Laterality Status Provider Name and Address Organization Details Recorded Time 4 Sports Shoulder 4&1 completed Jose Mohamud PA-C [address], [place], [address], [place] [facility] 07/13/2023 10:24:55 Imaging Results None recorded. Procedure Notes None recorded. Medical Equipment None Reported. Medications Name Sig Start Date Stop Date Status Note LastModified by Organization Details LastModified Time fluoxetine 40 mg capsule TAKE 1 CAPSULE BY MOUTH EVERY DAY active Not Available Not Available No t Available atorvastatin 80 mg tablet TAKE 1 TABLET BY MOUTH EVERY DAY AT BEDTIME FOR 90 DAYS active Not Available Not Available No t Available meloxicam 15 mg tablet TAKE 1 TABLET BY MOUTH EVERY DAY FOR 30 DAYS active Not Available Not Available No t Available glipizide 10 mg tablet TAKE 1 TAB ORALLY 2 TIMES A DAY active Not Available Not Available Not Available metoprolol succinate ER 100 mg tablet,exten ded release 24 hr TAKE 1 TABLET BY MOUTH EVERY DAY active Not Available Not Available No t Available metformin 850 mg tablet TAKE 1 TAB ORALLY 3 TIMES A DAY FOR 90 DAYS active Not Available Not Available Not Available aspirin 81 mg tablet,delay ed release TAKE 1 TABLET BY MOUTH EVERY DAY active Not Available Not Available No t Available ferrous sulfate 325 mg (65 mg iron) tablet TAKE 1 TABLET BY MOUTH EVERY DAY active Not Available Not Available No t Available pseudoephedr ine-guaifene sin ER 80-700 mg tablet,exten ded release as directed 1 to 2 tablets q 8hrs prn pain 2016 active Statu s: 'Curr ent'; Not Available Not Available Not Available gabapentin 300 mg capsule TAKE 1 CAPSULE BY MOUTH ORALLY 3 TIMES A DAY active Not Available Not Available Not Available bupropion HCl XL 150 mg 24 hr tablet, extended release TAKE 1 TABLET BY MOUTH EVERY DAY IN THE MORNING active Not Available Not Available No t Available Farxiga 10 mg tablet TAKE 1 TABLET BY MOUTH DAILY active Not Available Not Available Not Available Jardiance 25 mg tablet TAKE 1 TABLET BY MOUTH EVERY MORNING active Not Available Not Available No t Available Trulicity 3 mg/0.5 mL subcutaneous pen injector INJECT 1 PEN SUBCUTANEOU SLY EVERY WEEK active Not Available Not Available No t Available Ozempic 1 mg/dose (4 mg/3 mL) subcutaneous pen injector USE 1 MG (0.75 ML) SUBCUTANEOU SLY EVERY WEEK FOR 28 DAYS active Not Available Not Available No t Available Vitals Date Recorded Body height Body mass index (BMI) Body weight Provider Name and Address Organization Details Last Updated DateTime 07/13/2023 187.96 cm 28.2 kg/m2 35388.32 g Jose Mohamud PA-C [address] [place] [address] [address], [place], [address], [place] [facility] 07/13/2023 09:09:12 Social History None recorded. Functional Status None recorded. Mental Status None recorded. Family History Nothing Reported. Medical History No medical history recorded. Past Encounters Encounter ID Performer Location Encounter Start Date Encounter Closed Date Diagnosis/Indication Diagnosis SNOMED-CT Code Diagnosis ICD10 Code Diagnosis IMO Codes Diagnosis Note [id number] Jose Mohamud PA-[place] [address] 07/13/2023 08:59:03 07/13/2023 10:26:38 Pain of left shoulder joint 6596105594 1864228 M25.512 Calcific t endinitis of left shoulder 6017825696 90795 M75.32 Health Concerns Section Related Observation LastModified by Organization Detai ls LastModified Time None Recorded Concern Status LastModified by Organization Details LastModified Time None Recorded Advance Directives Directive None Recorded Payers Insurance Date Sequence Insurance Name Policy Number Policy Pederson Covered Member ID Pederson Member ID Guarantor Name 07/24/2024 1 [facility]: [facility] [id number] Ruben Alexis [id number] Ruben Alexis Notes Date Note Type Note Provider Name and Address Organization Details Recorded Time 07/13/2023 text/html I am seeing the patient today under the supervision of Dr. Josue who was available but who did not see the patient.HPI:The patient is a 52-year-old right-handed male comes the office quite a discomfort about his left shoulder. His left shoulder pain started 5 days ago. He denies injury. Pain is generalized about the shoulder. He has stiffness and discomfort. Is a history of calcific tendinitis of the right shoulder. He is treated conservatively 3 months ago with a cortisone injection. He has some underlying neck pathology and discomfort. He has a history of a cervical spine fusion performed at [facility] years ago.Past family, medical, social history and review of systems has been reviewed, updated and is located in the patient s chart.Examination:T he patient is well appearing and in no apparent distress. Alert and oriented x3. Gait is symmetric. No significant swelling, warmth, erythema about the left shoulder appears decreased range of motion left shoulder in all planes with pain and irritability. 4/5 strength of left shoulder. Mild tenderness of the parascapular region on the right left side. Range of motion of cervical spine is decreased in flexion and extension. Peripheral, vascular, lymphatic examination, skin, neurological, coordination, reflexes, sensation are within normal limits.X-rays ordered, obtained and reviewed at [facility] 4 views left shoulder reviewed demonstrated type II acromion with mild to moderate degenerative changes of the AC joint. There is a small calcific deposit evident. A lateral cervical spine demonstrate a well consolidated mass with hardware from C4 to C6. There is degenerative changes above the consolidation at C3.Impression:Calcif ic tendinitis left shoulder. History of C-spine fusion done elsewhere.Plan:I reviewed the x-rays and diagnosed with the patient. We discussed conservative management for the left shoulder problem. 3 modification discussed. P.r.n. NSAIDs can be used. We discussed risks associated with NSAID use. He is doing physical therapy for the right shoulder currently as well as his neck problem. We discussed role of injection therapies for the calcific tendinitis. Injected 80 mgs of Kenalog, and 10cc of % Marcaine under sterile conditions into the left shoulder half glenohumeral joint and half subacromial space. Patient tolerated the injection well. Moderating activities with the upper extremity recommended. We discussed the degenerative change of his cervical spine. He will follow-up as needed. Jose Mohamud PA-C [address], [place], [address], [facility] 07/13/2023 10:25:34
== END 2025-02-03 09:27 | disposition home or self-care (01) ==
LOC: HO.HUSH 08:42
PROVIDERS: PCP Family Medicine; Visit Provider Nurse Practitioner Family
DX: R39.16 Straining to void (principal); N39.43 Post-void dribbling; E11.69 Type 2 diabetes mellitus with other specified complication; N52.1 Erectile dysfunction due to diseases classified elsewhere; Z13.9 Encounter for screening, unspecified
CPT/HCPCS: 99204

== ENCOUNTER → 2025-02-03 08:42 | Outpatient (BNVA) | payer BC, SELFPAY | PROVIDERS: PCP Family Medicine; Visit Provider Nurse Practitioner Family | DX: R39.16 Straining to void (principal); N39.43 Post-void dribbling | CPT/HCPCS: 51798; 81003 ==

== ENCOUNTER 2025-02-18 08:31 | Outpatient (REF) | payer BC, SELFPAY ==
--- OUTSIDE RECORDS SUMMARY | 2025-02-18 08:56 | XMS_ITS | Data Portability ---
Author Organization [facility], [facility] Address [address] [place] [address] Care Team Providers Care Assistant Press Operator Offset Name Role Phone JESSICA BAPTISTE Primary Care [...] [facility], [address], [place], [address], 4 10:26:38 XR, cervical spine, 1 view 2023 024 [email or web address] [facility], [address], [place], [address], 4 10:26:38 Medication Orders None recorded. Patient TargetsNo targets recorded. Patient InstructionsNo instructions recorded. Reason for Referral None Reported. Procedures Surgical History Date Name Laterality Status Provider Name and Address Organization Details Recorded Time 4 Sports Shoulder 4&1 completed Jose Mohamud PA-C [address], [place], [address], [place] [facility] 07/13/2023 10:24:55 Imaging [...] Updated DateTime 07/13/2023 187.96 cm 28.2 kg/m2 82161.32 g Jose Mohamud PA-C [address] [place] [address] [address], [place], [address], [place] - [facility] 07/13/2023 09:09:12 Social History None recorded. Functional Status None recorded. Mental Status None recorded. Family History Nothing Reported. Medical History No medical history recorded. Past Encounters Encounter ID Performer Location Encounter Start Date Encounter Closed Date Diagnosis/Indication Diagnosis SNOMED-CT Code Diagnosis ICD10 Code Diagnosis IMO Codes Diagnosis Note [id number] Jose Mohamud PA-[place] [address] 07/13/2023 08:59:03 07/13/2023 10:26:38 Pain of left shoulder joint [id number] M25.512 Calcific t endinitis of left shoulder [id number] 50633 M75.32 Health Concerns Section Related Observation LastModified by Organization Detai ls LastModified Time None Recorded Concern Status LastModified by Organization Details LastModified Time None Recorded Advance Directives Directive None Recorded Payers Insurance Date Sequence Insurance Name Policy Number Policy Pederson Covered Member ID Pederson Member ID Guarantor Name 07/24/2024 1 [facility]: [facility] [id number] Ruben Alexis [id number] Ruben Alexis Notes Date Note Type [...] of a cervical spine fusion performed at [facility] years ago.Past family, medical, social history and [...] normal limits.X-rays ordered, obtained and reviewed at [facility] 4 views left shoulder reviewed demonstrated type [...] Mohamud PA-C [address], [place], [address], [facility] 07/13/2023 10:25:34
[2025-02-18 11:25] LABS: Appearance Urine Clear; Glucose Urine UA 500 mg/dL (Negative); PH 6.5 (5.0-9.0); Specific Gravity - Urine 1.020 (1.005-1.025)
[2025-02-18 12:18] LABS: Alanine Aminotransferase 38 U/L (0-40); Albumin Level 4.1 g/dL (3.5-5.0); Alkaline Phosphatase 99 U/L (39-117); Anion Gap 13 (12-20); Aspartate Amino Transferase 30 U/L (5-37); Blood Urea Nitrogen 9 mg/dL (9-16); Calcium 9.3 mg/dL (8.4-10.2); Carbon Dioxide 30 mmol/L (22-29); Chloride 105 mmol/L (96-108); Cholesterol 137 mg/dL (<200); Estimated Glomerular Filt Rate > 60; HDL Cholesterol 48 mg/dL (>40); Potassium 4.9 mmol/L (3.3-5.1); Sodium 143 mmol/L (135-145); Total Protein 6.5 g/dL (6.5-8.0); Triglycerides 83 mg/dL (<150)
[2025-02-18 12:50] LABS: Microalbum/Creatinine Ratio Ur 7.3 ug/mg cr (<30)
[2025-02-24 12:03] LABS: Testosterone, Free 51.9 pg/mL (35.0-155.0)
== END 2025-02-18 08:32 | disposition home or self-care (01) ==
LOC: HO.WFDLDS 08:31
PROVIDERS: Referring Provider Nurse Practitioner Family; Visit Provider Family Medicine
DX: Z00.00 Encounter for general adult medical examination without abnormal findings (principal); I10 Essential (primary) hypertension; E11.69 Type 2 diabetes mellitus with other specified complication; N52.1 Erectile dysfunction due to diseases classified elsewhere; R10.9 Unspecified abdominal pain
CPT/HCPCS: 36415; 80053; 80061; 81003; 82043; 82570; 83036; 84402; 84403; 84443

== ENCOUNTER 2025-02-23 11:13 | Outpatient (AMB) | payer BC, SELFPAY ==
[2025-02-23 11:26] VITALS: BP 126/68; PULSE 99; TEMP 36.7; O2SAT 97; BMI 24.6
--- NOTE | 2025-02-23 11:26 | A.OFFPC_ITS ---
Vital Signs 02/23/25 11:26 Height 6 ft 2 in Weight 191 lb 8 oz BMI 24.6 BP 126/68 Blood Pressure Location Lt brachial Position Sitting Pulse 99 Pulse Source Pulse Oximeter Temp 98.0 F Temp Source Temporal Artery Scan Pulse Oximetry (%) 97 Oxygen Delivery Method Room Air Intake Visit Reasons: [address] surya sanford comments Allergies No Known Allergies (No Known Allergies*) Allergy (Verified 02/23/25 11:26) Medication List - Last Reconciled 02/23/25 by Ricco Kenny MD atorvastatin 80 mg PO BEDTIME 90 days blood sugar diagnostic (FreeStyle Lite Strips) DX: E11.9, test blood sugar 2 times a day, 90 days blood-glucose meter (FreeStyle Lite Meter kit) DX: E11.9, test blood sugar 2 times a day, duration 999 days bupropion HCl XL 150 mg PO QAM empagliflozin (Jardiance) 25 mg PO QAM 90 days ferrous sulfate 325 mg PO DAILY 90 days fluoxetine 40 mg PO DAILY 90 days gabapentin 300 mg PO TID glipizide 10 mg PO BID ibuprofen 1 tab PO TID lancets (FreeStyle Lancets) As directed metformin 850 mg PO TID 90 days metoprolol succinate ER 25 mg PO DAILY 90 days omeprazole 20 mg PO BID semaglutide (Ozempic) 1 mg (0.75 mL) subcut QWEEK 28 days tadalafil (Cialis) 10 mg PO DAILY PRN 30 days tadalafil (Cialis) 5 mg PO DAILY 90 days tamsulosin 0.4 mg PO BEDTIME 90 days Tobacco use date assessed: 02/23/25 Dental Screening Dental Screen Date: 02/23/25 Did you have a dental visit in the last 12 months?: No Did you have a dental problem in the last 6 months where you did not have access to dental care?: No Was dental information given to patient?: Patient has dentist HPI [address] surya sanford comments HPI Details 54 y/o male presents for a CPE. Had reviewed health maintenance at last visit. Labs drawn 02/18/25. Reviewed labs with pt. A1c 6.4%. Triglycerides 83. TC 137. LDL 73. HDL 48. He is on artovastatin 80mg. BP today 120/68, 99p. Reports some hand pain/numbness. [facility] Medical History History of rosacea SOLEDAD (obstructive sleep apnea) Cervical radiculopathy History of tachycardia Diabetes GERD (gastroesophageal reflux disease) Anxiety Hypertension Hyperlipidemia LDL goal <100 Surgical History History of esophagogastroduodenoscopy (EGD) Hx of left knee surgery History of appendectomy History of cervical discectomy Hx of cholecystectomy Family History Father Diabetes Bladder cancer Family history of cancer Mother Heart problem Chronic GERD Paternal Aunt Cancer Social History Household Members: Family Housing: House Alcohol intake: current Alcohol intake frequency: a few times a week Patient Tobacco Use Status: Never used Tobacco e-Cigarette/Vaping Use: Never Used Second Hand Smoke Exposure: No service: No Current occupational status: employed Current occupational exposures/hazards: No Sexual orientation: Unable to collect Gender identity: Unable to collect Cognitive needs: No Hearing needs: No Vision needs: No Questionnaire PHQ-9 Over the last 2 weeks, how often have you been bothered by any of the following problems? 1. Little interest or pleasure in doing things: more than half the days 2. Feeling down, depressed, or hopeless: more than half the days 3. Trouble falling or staying asleep, or sleeping too much: not at all 4. Feeling tired or having little energy: several days 5. Poor appetite or overeating: more than half the days 6. Feeling bad about yourself - or that you are a failure or have let yourself or your family down: not at all 7. Trouble concentrating on things, such as reading the newspaper or watching television: not at all 8. Moving or speaking so slowly that other people could have noticed. Or the opposite - being so fidgety or restless that you have been moving around a lot more than usual: not at all 9. Thoughts that you would be better off or of hurting yourself in some way: not at all Total score: 7 Source: Developed by Drs. Juanito Snell, Danii Van, James Easley and colleagues, with an educational herminia from [employer]. Thrive Questionnaire Date Thrive assessed: 05/29/24 I am a: Patient What is your living situation today?: I have a steady place to live Within the past 12 months, did the food you bought not last and you didn't have the money to get more?: Never true Within the past 12 months, did you worry whether your food would run out before you got money to buy more?: Never true Do you have trouble paying for medicines?: No Do you have trouble getting transportation to medical appointments?: No Do you have trouble paying your heating and electricity bill?: No Do you have trouble taking care of your child, family member or friend?: No Do you have trouble with day-to-day activities such as bathing, preparing meals, shopping, managing finances, etc.?: No Are you currently unemployed and looking for a job?: No Are you interested in more education?: No Please select the resources that you would like help with: None Currently or been in a relationship where the following occur: No concerns reported THRIVE Score: 0 AUDIT C Alcohol Use Questionnaire (AUDIT-C) 1. How often do you have a drink containing alcohol?: 4 or more times a week 2. How many drinks containing alcohol do you have on a typical day when you are drinking?: 3 or 4 3. How often do you have six or more drinks on one occasion?: Weekly Total Score: 8 ZAY-7 AMB Questionnaire ZAY-7 Date ZAY - 7 assessed: 07/31/24 Feeling nervous, anxious, or on edge: 0 = Not at all Not being able to stop or control worryin = Not at all Worrying too much about different things: 0 = Not at all Trouble relaxin = Not at all Being so restless that it is hard to sit still: 0 = Not at all Becoming easily annoyed or irritable: 0 = Not at all Feeling afraid as if something awful might happen: 0 = Not at all Total ZAY-7 score (0-4 normal; 5-9 mild; 10-14 moderate; 15-21 severe): 0 Source: Developed by Drs. Juanito Snell, Danii Van, James Easley and colleagues, with an educational herminia from [employer]. Review of Systems Const Denies chills, Denies fatigue, Denies fever(s), Denies headache(s) and Denies weakness Eyes Denies change in vision ENT Denies dizziness, Denies headache(s), Denies hearing loss, Denies nasal congestion, Denies sinus pain, Denies sinus pressure and Denies sore throat Card Denies chest pain, Denies lightheadedness, Denies dyspnea and Denies other (palpitations) Resp Denies cough, Denies dyspnea and Denies wheezing GI Denies abdominal pain, Denies melena, Denies hematochezia, Denies change in bowel habits, Denies dyspepsia and Denies nausea Denies hematuria and Denies dysuria Musc Denies abnormal gait, Denies myalgias, Denies arthralgias, Denies numbness and Denies tingling Skin/Breast Denies rash, Denies unusual bruising and Denies wounds Neuro Denies abnormal gait, Denies dizziness, Denies headache(s), Denies memory loss, Denies numbness, Denies Sensory deficit (Neuro), Denies tingling and Denies weakness Psych Denies anxiety, Denies depression and Denies memory loss Endo Denies cold intolerance, Denies fatigue, Denies heat intolerance, Denies polydipsia and Denies polyuria Prosper/Lymph Denies easy bleeding and Denies easy bruising Aller/Immun Denies wheezing Physical exam (Primary Care) Vital Signs: Last Vital Signs Temp 98.0 F 02/23/25 11:26 Pulse 99 02/23/25 11:26 BP 126/68 02/23/25 11:26 Pulse Ox 97 02/23/25 11:26 Oxygen Delivery Method Room Air 02/23/25 11:26 BMI result Body Mass Index 24.6 Tobacco/Smoking Status: Tobacco use Status Tobacco use date assessed 02/23/25 02/23/25 11:27 Patient Tobacco Use Status Never used Tobacco 02/23/25 11:27 e-Cigarette/Vaping Use Never Used 02/23/25 11:27 PHQ-9: PHQ-9 Score PHQ-9: Total score 7 02/23/25 12:34 Thrive Assessment: Date of Thrive Assessment Date Thrive assessed 05/29/24 02/23/25 11:27 Currently or been in a relationship where the following occur: No concerns reported Const General: no acute distress, well developed, alert and awake Nutritional Appearance: well nourished Orientation/consciousness: patient oriented x3 HENMT Head: Yes normocephalic and Yes atraumatic Ears: hearing grossly normal bilaterally and TM's normal bilaterally General nose exam: Normal external nose present and Normal nares present Mouth: Normal oral and palatal mucosa present and moist mucous membranes Teeth and gingiva: dentition normal Throat: Yes posterior oropharynx normal Eyes General: appearance normal, both eyes and all related structures Pupils: Equal, round and reactive pupils present and Pupil accommodation reflex normal EOM: EOMs intact bilaterally Neck Neck: Yes normal visual inspection, Yes no lymphadenopathy and Yes trachea midline Thyroid: Thyroid normal Carotids: no bruits Lymphatic: no lymphadenopathy noted Chest Chest palpation & inspection: normal inspection of the chest Resp Effort & Inspection: normal respiratory effort Auscultation: clear to auscultation bilaterally Cardio Rate: regular rate Rhythm: regular rhythm Heart sounds: S1 normal heart sound present, S2 normal heart sound present, no gallops, no murmurs and no rubs Bruits: no abdominal aortic bruits and no carotid bruits GI Palpation (GI): No Abdominal aortic bruit present, Soft to palpation, nontender, No hepatosplenomegaly present and No Rebound tenderness present Auscultation: normal bowel sounds General: Yes no CVA tenderness Back/Spine/Pelvis Back: no CVA tenderness Cervical Spine: cervical ROM normal and No Cervical spine tenderness Thoracic/Lumbar Spine: thoraco-lumbar ROM normal, No pain with thoraco-lumbar ROM, No thoracic spinal tenderness and No lumbar spinal tenderness Skin Lesions: no lesions Rashes: no rashes Trauma: no lacerations or abrasions Wounds: no wounds Nails: normal Neuro General: patient oriented x3 Cranial nerves: Yes Equal, round and reactive pupils present Cognition (Neuro): normal cognition Gait exam (Neuro): Normal gait present Motor exam (neuro): 5/5 motor strength present throughout Sensory Exam: No Sensory deficit (Neuro) Deep tendon reflexes (DTR's): Right patellar reflex intensity grade: 2+ and Left patellar reflex intensity grade: 2+ Extrem General: Yes normal to inspection and No edema Psych Appearance: grossly normal Affect: normal affect Attitude: cooperative Thought process: Normal thought process present Coding Level of Care Code Est Pt Level 3 (91210) Est Pt Prev Care 40-64y(68252) Diagnoses Adult general medical exam Z00.00 Essential hypertension I10 Hyperlipidemia LDL goal <100 E78.5 Hand pain M79.643 Assessment & Plan Assessment & Plan (1) Adult general medical exam: Code(s): Z00.00 - Encounter for general adult medical examination without abnormal findings Category: Medical Plan: 54-year-old male presents for complete physical exam Encouraged healthy diet with active lifestyle and of exercise (2) Essential hypertension: Code(s): I10 - Essential (primary) hypertension Category: Medical Plan: Blood pressure is controlled. Goal is less than 140/90 Continue current medication (3) Hyperlipidemia LDL goal <100: Code(s): E78.5 - Hyperlipidemia, unspecified Category: Medical Plan: LDL cholesterol is controlled. Continue current medication (4) Hand pain: Code(s): M79.643 - Pain in unspecified hand Category: Medical Plan: Ongoing worsening right hand and forearm pain stiffness and weakness hand He is using ibuprofen in a brace. 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 Referring him to hand surgeon. Orders: Orders OT Evaluation and Treatment Today M77.8 - Other enthesopathies, not elsewhere classified, M79.643 - Pain in unspecified hand Referrals Hand Surgery Referral M77.8 - Other enthesopathies, not elsewhere classified, M79.643 - Pain in unspecified hand Medications: New prednisone 40 mg (2 x 20 mg) PO DAILY 6 tabs 0RF 3 days M77.8 - Other enthesopathies, not elsewhere classified
== END 2025-02-23 12:50 | disposition home or self-care (01) ==
LOC: HO.HMCFM 11:13
PROVIDERS: PCP Family Medicine; Visit Provider Family Medicine
DX: Z00.00 Encounter for general adult medical examination without abnormal findings (principal); I10 Essential (primary) hypertension; E78.5 Hyperlipidemia, unspecified; M79.641 Pain in right hand; M79.631 Pain in right forearm